=== PATIENT | male | born 1950 | race Caucasian/White ===

== ENCOUNTER 2019-05-07 19:27 | Inpatient (IN) ==
[2019-05-07] MEDS ORDERED: SODIUM CHLORIDE 0.9% 1000ML 1,000 ML IV SCH (20:00)
--- NOTE | 2019-05-07 20:11 | XRay Report ---
XR chest 1V portable HISTORY: weakness COMPARISON: Chest 04/19/2019. FINDINGS: Old, healed right-sided rib fractures. No new focal lung consolidations to suggest pneumoni a. No evidence for pulmonary edema. No pleural effusions. No pneumothorax. The heart is normal in siz e. IMPRESSION: No significant change compared to the prior study. No acute process. Electronically signed by: Sami Jon M.D. 05/07/2019 8:09 PM
[2019-05-07 20:21] LABS: Basophils # (auto) 0.02 K/uL (0-0.2); Basophils % (auto) 0.2 %; Eosinophils # (auto) 0.09 K/uL (0-0.5); Eosinophils % (auto) 1.1 %; Hematocrit (blood only) 42.4 % (42-52); Hemoglobin 14.6 g/dL (14.0-18.0); Immature Granulocytes # (auto) 0.04 K/uL (0.00-0.02); Immature Granulocytes % (auto) 0.5 %; Lymphocytes # (auto) 1.78 K/uL (1.2-3.4); Lymphocytes % (auto) 21.2 %; Mean Corpuscular Hemoglobin 31.9 pg (25-34); Mean Corpuscular Hgb Conc 34.4 g/dL (32-36); Mean Corpuscular Volume 92.6 fL (80-100); Mean Platelet Volume 10.7 fL (7.4-10.4); Monocytes # (auto) 0.53 K/uL (0.11-0.59); Monocytes % (auto) 6.3 %; Neutrophils # (auto) 5.92 K/uL (1.4-6.5); Neutrophils % (auto) 70.7 %; Platelet Count 232 K/uL (130-400); RDW Coefficient of Variation 13.1 % (11.5-14.5); RDW Standard Deviation 44.5 fL (36.4-46.3); Red Blood Count 4.58 M/uL (4.7-6.1); White Blood Count 8.38 K/uL (4.8-10.8)
[2019-05-07 20:28] LABS: Appearance Urine Clear (Clear); Bilirubin Urine Negative (Negative); Blood Urine Negative (Negative); Color Urine Yellow; Glucose Urine UA 3+ (Negative); Ketones Urine Negative (Negative); Leukocyte Esterase Urine Negative (Negative); Nitrite Urine Negative (Negative); Protein Urine Negative (Negative); Specific Gravity Urine 1.032 (1.000-1.030); Urobilinogen Urine Negative (Negative)
--- NOTE | 2019-05-07 20:36 | CT Scan Report ---
HEAD CT NONCONTRAST CT DOSE: 691.05 mGy.cm HISTORY: gait abnormality TECHNIQUE: Multiaxial CT images of the head were performed without the use of intravenous contrast. A utomated exposure control was utilized for this study. A dose lowering technique was utilized adheri ng to the principles of ALARA. Comparison: None. Findings: The paranasal sinuses and mastoid air cells are clear. The calvarium and skull base are int act. There is no mass, hematoma, midline shift, acute infarct. Mild ventriculomegaly involving the la teral and third ventricles. This is out of proportion to the sulcal atrophy. This is similar to the p rior study. Impression: Mild ventriculomegaly involving the lateral and third ventricles. This is out of proportion to the queen lcal atrophy. This is similar to the prior study. This is nonspecific but could be seen in the settin g of normal pressure hydrocephalus. Neurology consultation recommended. Electronically signed by: Sami Jon M.D. 05/07/2019 8:33 PM
[2019-05-07] MEDS ORDERED: NovoLIN-R INSULIN PER UNIT CHARGE SC STA (20:43)
[2019-05-07 20:44] LABS: Albumin Level 3.6 gm/dl (3.4-5.0); BUN Creatinine Ratio 16.7 (10-20); Bilirubin,Total 0.4 mg/dl (0.2-1); Calcium 9.1 mg/dl (8.5-10.1); Est GFR (African American) 54.7; Est GFR (Non-African American) 47.2; Potassium 4.3 mmol/L (3.5-5.1); Total Protein 7.2 gm/dl (6.4-8.2)
[2019-05-07 21:21] LABS: Beta-Hydroxybutyrate 1.47 mg/dl (0.2-2.81)
[2019-05-07 22:23] LABS: Globulin 3.6 gm/dl (2.5-4.0)
[2019-05-08] MEDS ORDERED: ACETAMINOPHEN 325 MG TAB PO PRN (00:35)
[2019-05-08] MEDS ORDERED: ONDANSETRON INJ 2 MG/ML 2 ML VIAL IV PRN (00:35)
[2019-05-08] MEDS ORDERED: POLYETHYLENE (MIRALAX) 17 GM PACK PO PRN (00:35)
[2019-05-08] MEDS ORDERED: GLUCOSE 40% GEL 15 GM TUBE PO PRN (00:45)
[2019-05-08] MEDS ORDERED: CARBOHYDRATES FOR HYPOGLYCEMIA PO PRN (00:45)
[2019-05-08] MEDS ORDERED: DEXTROSE 50% 50 ML SYRINGE IV PRN (00:45)
[2019-05-08] MEDS ORDERED: GLUCAGON FOR INJ 1 MG VIAL IM PRN (00:45)
[2019-05-08] MEDS ORDERED: GLUCOSE 10 TABS/TUBE PO PRN (00:45)
--- NOTE | 2019-05-08 00:45 | Emergency Department Note ---
Entered by Denice Garcia acting as a scribe for Shelby Calderon MD History of Present Illness General Chief complaint: Fall Stated complaint: FALL, DIZZINESS, HYPERGLYCEMIA Source: patient Limitations: no limitations History of Present Illness Onset (ago): minute(s) (APPLIER) Location: head Pain Consistency: + other (episode) Quality: + other (fall) Associated symptoms: + weakness The patient is a 68 year old male who presents to the Emergency Room with complaints of an episode of a fall that occurred APPLIER. He states that he was walking, he felt dizzy and weak, and then he lowered himself to the floor. The patient complains of feeling tired and weak for the past month. His , at bedside, states that he "legs haven't been working right and causing him to shuffle" for the past 6 months. He complains of a dry mouth. The patient denies hitting his head during the fall. The patient's , at bedside, states that his blood sugar was in the 300s today. The patient notes that he has a history of diabetes, stating that he is prescribed pills for his diabetes. Home Medications Home Medications Medication Instructions Recorded Confirmed Type allopurinol 100 mg PO QAM 04/19/19 05/07/19 History atorvastatin 40 mg PO QAM 04/19/19 05/07/19 History bupropion HCl 200 mg PO BID 04/19/19 05/08/19 History citalopram 20 mg PO QAM 04/19/19 05/07/19 History dextroamphetamine-amphetamine 20 mg PO BID 04/19/19 05/07/19 History lisinopril-hydrochlorothiazide 1 tab PO QAM 04/19/19 05/07/19 History sildenafil 100 mg PO DIRECTED 04/19/19 05/07/19 History solifenacin [Vesicare] 10 mg PO QAM 04/19/19 05/07/19 History aspirin [Aspirin Low Dose] 81 mg PO DAILY 05/07/19 05/07/19 History metformin 500 mg PO BID 05/07/19 05/07/19 History acetaminophen [Mapap 650 mg PO Q4H PRN 5 Days #20 tab 05/10/19 Rx (acetaminophen)] insulin glargine [Lantus Solostar 35 units SC .qhs 5 Days #3 ml 05/10/19 Rx U-100 Insulin] polyethylene glycol 3350 [Miralax] 17 g PO DAILY PRN 5 Days #10 ea 05/10/19 Rx sennosides-docusate sodium 1 tab PO QAM 5 Days #5 tab 05/10/19 Rx [Senokot-S] Allergies Allergy/AdvReac Type Severity Reaction Status Date / Time No Known Allergies Allergy Verified 05/07/19 21:35 Past Med/Surg History Medical History Diet-controlled diabetes mellitus No known health problems Family History Other No pertinent family history Social History Preferred Language: Turkmen Communication Ability: Effective Reconstructive Surgeon Required: No Beliefs That Will Affect Care: None Current Living Situation: Spouse Feels Safe at Home: Yes Smoking Status: Never smoker Hx Alcohol Use: Yes Hx Substance Use: No Review of Systems See HPI for pertinent positives & negatives. and A total of 10 systems reviewed and were otherwise negative Physical Exam Vital Signs Vital Signs - 24 hr 05/07/19 19:47 05/07/19 19:58 05/07/19 20:16 Temperature 36.5 C Temperature Source Oral Pulse Rate - Lying 78 Pulse Rate - Sitting 80 Pulse Rate - Standing 84 Pulse Rate 81 Pulse Rate [Bilateral Apical] 78 Respiratory Rate 20 18 Respiratory Effort / Characteristics Non-Labored Respiratory Depth Normal Blood Pressure - Lying 140/66 Blood Pressure - Sitting 152/71 H Blood Pressure- Standing 152/78 H Blood Pressure 128/65 Blood Pressure [Right Arm] 140/66 Blood Pressure Mean 86 Blood Pressure Mean [Right Arm] 90 Pulse Oximetry 94 94 92 Oxygen Delivery Method Room Air Room Air Room Air Sepsis Recent Fever Within 48 Hours No Sepsis Action Taken by Nursing No Action Required 05/07/19 20:27 05/07/19 21:20 05/07/19 22:32 Temperature Temperature Source Pulse Rate - Lying Pulse Rate - Sitting Pulse Rate - Standing Pulse Rate Pulse Rate [Bilateral Apical] 76 88 71 Respiratory Rate 18 20 18 Respiratory Effort / Characteristics Respiratory Depth Blood Pressure - Lying Blood Pressure - Sitting Blood Pressure- Standing Blood Pressure Blood Pressure [Right Arm] 125/71 143/73 H 141/64 H Blood Pressure Mean Blood Pressure Mean [Right Arm] 89 96 89 Pulse Oximetry 93 94 94 Oxygen Delivery Method Room Air Room Air Sepsis Recent Fever Within 48 Hours Sepsis Action Taken by Nursing Vital signs reviewed. General: Elderly, chronically ill-appearing male, in no significant distress. HEENT: No scleral icterus, PERRLA, neck supple. Atraumatic. Cardiovascular: Regular rate and rhythm, no extra sounds. Pulmonary: Clear to auscultation bilaterally, normal work of breathing. Abdomen: Soft, nontender, nondistended, positive bowel sounds. Musculoskeletal: Atraumatic, no peripheral edema. Neurologic: Patient awake alert and oriented x 3, full strength in all 4 extremities. Cranial nerves 2 through 12 grossly intact. Speech is slow, but he is articulating. Follows commands. Negative pronator drift and intact finger to nose. Skin: Warm, dry, no rash Course Course 1943: The patient was evaluated in room C11B. A complete history and physical exam was performed. 2042: The nursing staff updated me that the patients blood glucose was 418. 2119: I spoke with Dr. Dominguez, [facility] hospitalist, about the patient's case. He will further evaluate the patient. Administered Medications Allopurinol (Zyloprim) 100 mg PO QAM ON LICENSE OF [facility] Stop: 06/07/19 08:59 Last Admin: 05/09/19 08:08 Dose: 100 mg Documented by: [id number] Admin: 05/08/19 08:03 Dose: 100 mg Documented by: [id number] Amphetamine/Dextroamphetamine (Adderall) 20 mg PO BID@0700,1400 ON LICENSE OF [facility] Stop: 05/22/19 06:59 Last Admin: 05/09/19 14:06 Dose: 20 mg Documented by: [id number] Admin: 05/09/19 08:07 Dose: 20 mg Documented by: [id number] Admin: 05/08/19 14:22 Dose: 20 mg Documented by: [id number] Admin: 05/08/19 08:02 Dose: 20 mg Documented by: [id number] Aspirin (Ecotrin Ectab) 81 mg PO DAILY ON LICENSE OF [facility] Stop: 06/07/19 08:59 Last Admin: 05/09/19 08:07 Dose: 81 mg Documented by: [id number] Admin: 05/08/19 08:02 Dose: 81 mg Documented by: [id number] Atorvastatin Calcium (Lipitor) 40 mg PO QAM ON LICENSE OF [facility] Stop: 06/07/19 08:59 Last Admin: 05/09/19 08:08 Dose: 40 mg Documented by: [id number] Admin: 05/08/19 08:03 Dose: 40 mg Documented by: [id number] Bupropion HCl (Wellbutrin-Sr) 200 mg PO BID ON LICENSE OF [facility] Stop: 06/07/19 08:59 Last Admin: 05/09/19 20:29 Dose: 200 mg Documented by: [id number] Admin: 05/09/19 08:08 Dose: 200 mg Documented by: [id number] Admin: 05/08/19 20:40 Dose: 200 mg Documented by: [id number] Admin: 05/08/19 08:03 Dose: 200 mg Documented by: [id number] Citalopram Hydrobromide (Celexa) 20 mg PO QAM ON LICENSE OF [facility] Stop: 06/07/19 08:59 Last Admin: 05/09/19 08:08 Dose: 20 mg Documented by: [id number] Admin: 05/08/19 08:04 Dose: 20 mg Documented by: [id number] Gadobutrol (Gadavist 65ml) 11.2 ml IV ONCE PRN PRN Reason: Interaction Checking Stop: 05/12/19 23:05 Last Admin: 05/08/19 23:06 Dose: 11.2 ml Documented by: [id number] Lisinopril/HCTZ (Prinzide 20/25mg) 1 tab PO QAM ON LICENSE OF [facility] Stop: 06/07/19 08:59 Last Admin: 05/09/19 08:07 Dose: 1 tab Documented by: [id number] Admin: 05/08/19 08:03 Dose: 1 tab Documented by: [id number] Insulin Aspart (Novolog Flexpen) 0 units SC ACHS ON LICENSE OF [facility] Stop: 06/07/19 00:59 Last Admin: 05/09/19 20:30 Dose: 20 units Documented by: [id number] Cosigned by: [id number] Admin: 05/09/19 17:25 Dose: 17 units Documented by: [id number] Cosigned by: [id number] Admin: 05/09/19 12:02 Dose: 17 units Documented by: [id number] Cosigned by: [id number] Admin: 05/09/19 08:12 Dose: 12 units Documented by: [id number] Cosigned by: [id number] Admin: 05/08/19 20:41 Dose: 8 units Documented by: [id number] Cosigned by: [id number] Admin: 05/08/19 17:21 Dose: 16 units Documented by: [id number] Cosigned by: [id number] Admin: 05/08/19 12:08 Dose: 13 units Documented by: [id number] Cosigned by: [id number] Admin: 05/08/19 08:06 Dose: 13 units Documented by: [id number] Cosigned by: [id number] Admin: 05/08/19 02:01 Dose: 7 units Documented by: [id number] Cosigned by: [id number] Insulin Glargine (Lantus Solostar Pen) 0 units SC BID JACQUIE; Protocol Stop: 06/08/19 08:59 Last Admin: 05/09/19 20:30 Dose: 30 units Documented by: [id number] Cosigned by: [id number] Admin: 05/09/19 08:09 Dose: 20 units Documented by: [id number] Cosigned by: [id number] Senna/Docusate Sodium (Senokot S) 1 tab PO QAM ON LICENSE OF [facility] Stop: 06/08/19 18:14 Last Admin: 05/09/19 20:29 Dose: 1 tab Documented by: [id number] Tolterodine Tartrate (Detrol) 1 mg PO BID ON LICENSE OF [facility] Stop: 06/07/19 20:59 Last Admin: 05/09/19 20:30 Dose: 1 mg Documented by: [id number] Admin: 05/09/19 08:07 Dose: 1 mg Documented by: [id number] Admin: 05/08/19 20:46 Dose: 1 mg Documented by: [id number] Discontinued Medications Sodium Chloride (Nss 1000ml) 1,000 mls @ 125 mls/hr IV .Q8H ON LICENSE OF [facility] Stop: 06/06/19 19:59 Last Infusion: 05/08/19 00:08 Dose: 0 mls/hr Documented by: [id number] Admin: 05/07/19 20:20 Dose: 125 mls/hr Documented by: [id number] Lorazepam (Ativan) 0.5 mg in 1 mls @ 1 mls/min IV ONE ONE Stop: 05/08/19 02:16 Last Admin: 05/08/19 03:38 Dose: 1 mls/min Documented by: [id number] Insulin Aspart (Novolog Flexpen) 0 units SC 0000,0400 ON LICENSE OF [facility] Stop: 05/09/19 04:01 Last Admin: 05/09/19 04:32 Dose: 4 units Documented by: [id number] Cosigned by: [id number] Admin: 05/09/19 00:01 Dose: 2 units Documented by: [id number] Cosigned by: [id number] Insulin Aspart (Novolog Flexpen) 0 units SC 0000 ON LICENSE OF [facility] Stop: 05/10/19 00:01 Last Admin: 05/10/19 00:24 Dose: 1 units Documented by: [id number] Cosigned by: [id number] Insulin Glargine (Lantus Solostar Pen) 5 units SC BID ON LICENSE OF [facility] Stop: 06/07/19 00:59 Last Admin: 05/08/19 02:00 Dose: 5 units Documented by: [id number] Cosigned by: [id number] Insulin Glargine (Lantus Solostar Pen) 20 units SC NOW ONE Stop: 05/08/19 08:01 Last Admin: 05/08/19 08:05 Dose: 20 units Documented by: [id number] Cosigned by: [id number] Insulin Glargine (Lantus Solostar Pen) 0 units SC HS ON LICENSE OF [facility]; Protocol Stop: 05/08/19 21:01 Last Admin: 05/08/19 20:40 Dose: 15 units Documented by: [id number] Cosigned by: [id number] Insulin Human Regular (Novolin R U-100 Per Unit) 10 units SC NOW STA Stop: 05/07/19 20:44 Last Admin: 05/07/19 21:16 Dose: 10 units Documented by: [id number] Cosigned by: [id number] Lorazepam (Ativan) 0.5 mg PO TODAY@1630 ON LICENSE OF [facility] Stop: 05/08/19 23:59 Last Admin: 05/08/19 21:34 Dose: 0.5 mg Documented by: [id number] Miscellaneous (Order Awaiting Action) 1 ea N/A QS ON LICENSE OF [facility] Stop: 06/07/19 00:59 Last Admin: 05/08/19 07:36 Dose: Not Given Documented by: [id number] Admin: 05/08/19 02:04 Dose: Not Given Documented by: [id number] Potassium Chloride (Klor-Con M20) 20 meq PO NOW ONE Stop: 05/08/19 14:16 Last Admin: 05/08/19 16:29 Dose: 20 meq Documented by: [id number] Medical Decision Making Differential Diagnosis Differential includes acute coronary syndrome, myocardial infarction, CVA, TIA, anemia, infection, pneumonia, UTI, pyelonephritis, poor nutrition, dehydration, electrolyte disturbance,hypoglycemia. Medical Records Attestation: I reviewed the patient's medical records. Home Medications Current Medication List: was personally reviewed by me Laboratory Data Attestation: I reviewed the patient's lab results. Result diagrams: 05/09/19 06:13 05/09/19 06:13 Lab Results 05/07/19 05/07/19 05/07/19 Range/Units 19:59 19:59 19:59 WBC 8.38 (4.8-10.8) K/uL RBC 4.58 L (4.7-6.1) M/uL Hgb 14.6 (14.0-18.0) g/dL Hct 42.4 (42-52) % MCV 92.6 (80-100) fL MCH 31.9 (25-34) pg MCHC 34.4 (32-36) g/dL RDW Std Deviation 44.5 (36.4-46.3) fL RDW Coeff of Krysta 13.1 (11.5-14.5) % Plt Count 232 (130-400) K/uL MPV 10.7 H (7.4-10.4) fL Immature Gran % (Auto) 0.5 % Neut % (Auto) 70.7 % Lymph % (Auto) 21.2 % [place] % (Auto) 6.3 % Eos % (Auto) 1.1 % Baso % (Auto) 0.2 % Immature Gran # (Auto) 0.04 H (0.00-0.02) K/uL Neut # (Auto) 5.92 (1.4-6.5) K/uL Lymph # (Auto) 1.78 (1.2-3.4) K/uL [place] # (Auto) 0.53 (0.11-0.59) K/uL Eos # (Auto) 0.09 (0-0.5) K/uL Baso # (Auto) 0.02 (0-0.2) K/uL Sodium 134 L (136-145) mmol/L Potassium 4.3 (3.5-5.1) mmol/L Chloride 101 (98-107) mmol/L Carbon Dioxide 27 (21-32) mmol/L Anion Gap 6.0 (3-11) BUN 25 H (7-18) mg/dl Creatinine 1.49 H (0.6-1.4) mg/dl Est Cr Clr Drug Dosing 59.0 ml/min Est GFR ( Amer) 54.7 Est GFR (Non-Af Amer) 47.2 BUN/Creatinine Ratio 16.7 (10-20) Glucose 412 H* (70-99) mg/dl POC Glucose (70-99) Calcium 9.1 (8.5-10.1) mg/dl Total Bilirubin 0.4 (0.2-1) mg/dl AST 8 L (15-37) U/L ALT 28 (12-78) U/L Alkaline Phosphatase 106 (45-117) U/L Troponin I < 0.015 (0-0.045) ng/ml Total Protein 7.2 (6.4-8.2) gm/dl Albumin 3.6 (3.4-5.0) gm/dl Globulin 3.6 (2.5-4.0) gm/dl Albumin/Globulin Ratio 1.0 (0.9-2) Beta-Hydroxybutyric Acd 1.47 (0.2-2.81) mg/dl Urine Color Urine Appearance (Clear) Urine pH (4.5-7.5) Ur Specific Page (1.000-1.030) Urine Protein (Negative) Urine Glucose (UA) (Negative) Urine Ketones (Negative) Urine Blood (Negative) Urine Nitrite (Negative) Urine Bilirubin (Negative) Urine Urobilinogen (Negative) Ur Leukocyte Esterase (Negative) 05/07/19 05/07/19 Range/Units 19:59 21:55 WBC (4.8-10.8) K/uL RBC (4.7-6.1) M/uL Hgb (14.0-18.0) g/dL Hct (42-52) % MCV (80-100) fL MCH (25-34) pg MCHC (32-36) g/dL RDW Std Deviation (36.4-46.3) fL RDW Coeff of Krysta (11.5-14.5) % Plt Count (130-400) K/uL MPV (7.4-10.4) fL Immature Gran % (Auto) % Neut % (Auto) % Lymph % (Auto) % [place] % (Auto) % Eos % (Auto) % Baso % (Auto) % Immature Gran # (Auto) (0.00-0.02) K/uL Neut # (Auto) (1.4-6.5) K/uL Lymph # (Auto) (1.2-3.4) K/uL [place] # (Auto) (0.11-0.59) K/uL Eos # (Auto) (0-0.5) K/uL Baso # (Auto) (0-0.2) K/uL Sodium (136-145) mmol/L Potassium (3.5-5.1) mmol/L Chloride (98-107) mmol/L Carbon Dioxide (21-32) mmol/L Anion Gap (3-11) BUN (7-18) mg/dl Creatinine (0.6-1.4) mg/dl Est Cr Clr Drug Dosing ml/min Est GFR ( Amer) Est GFR (Non-Af Amer) BUN/Creatinine Ratio (10-20) Glucose (70-99) mg/dl POC Glucose 349 H* (70-99) Calcium (8.5-10.1) mg/dl Total Bilirubin (0.2-1) mg/dl AST (15-37) U/L ALT (12-78) U/L Alkaline Phosphatase (45-117) U/L Troponin I (0-0.045) ng/ml Total Protein (6.4-8.2) gm/dl Albumin (3.4-5.0) gm/dl Globulin (2.5-4.0) gm/dl Albumin/Globulin Ratio (0.9-2) Beta-Hydroxybutyric Acd (0.2-2.81) mg/dl Urine Color Yellow Urine Appearance Clear (Clear) Urine pH 5.0 (4.5-7.5) Ur Specific Page 1.032 H (1.000-1.030) Urine Protein Negative (Negative) Urine Glucose (UA) 3+ H (Negative) Urine Ketones Negative (Negative) Urine Blood Negative (Negative) Urine Nitrite Negative (Negative) Urine Bilirubin Negative (Negative) Urine Urobilinogen Negative (Negative) Ur Leukocyte Esterase Negative (Negative) Imaging Data Radiologist's Impression: Radiology results as stated below per my review and the radiologist's interpretation: HEAD CT NONCONTRAST CT DOSE: 691.05 mGy.cm HISTORY: gait abnormality TECHNIQUE: Multiaxial CT images of the head were performed without the use of intravenous contrast. Automated exposure control was utilized for this study. A dose lowering technique was utilized adhering to the principles of ALARA. Comparison: None. Findings: The paranasal sinuses and mastoid air cells are clear. The calvarium and skull base are intact. There is no mass, hematoma, midline shift, acute infarct. Mild ventriculomegaly involving the lateral and third ventricles. This is out of proportion to the sulcal atrophy. This is similar to the prior study. Impression: Mild ventriculomegaly involving the lateral and third ventricles. This is out of proportion to the sulcal atrophy. This is similar to the prior study. This is nonspecific but could be seen in the setting of normal pressure hydrocephalus. Neurology consultation recommended. Electronically signed by: Sami Jon M.D. 05/07/2019 8:33 PM XR chest 1V portable HISTORY: weakness COMPARISON: Chest 04/19/2019. FINDINGS: Old, healed right-sided rib fractures. No new focal lung consolidations to suggest pneumonia. No evidence for pulmonary edema. No pleural effusions. No pneumothorax. The heart is normal in size. IMPRESSION: No significant change compared to the prior study. No acute process. Electronically signed by: Sami Jon M.D. 05/07/2019 8:09 PM ECG Data Attestation: I personally reviewed and interpreted this ECG as follows: Indication: + other (fall) Rate (beats per minute): 85 Rhythm: + normal sinus ECG Intervals/blocks: + Right Bundle branch block ECG Findings: + Other (prolonged QTC of 473); no PACs and no PVCs Blood Pressure Blood Pressure Findings: Elevated blood pressure Blood Pressure Disposition: further management by hospitalist MDM Narrative This pt was evaluated and appeared to be in no distress. IV access was obtained and lab work was drawn. Pt was placed on the youth nutritional monitor. IVF were initiated. Lab work reveals a glucose of 412. Pt was given 10 units of SQ regular insulin. Head CT reveals no acute abnl, however there are findings suggestive of NPH. Pt and were advised of the findings and will be nel luated by the hospitalist service for further management. Impression & Plan Falls, Weakness, Ambulatory dysfunction, Hyperglycemia Discharge Plan Visit Data *Final* Discharge Date/Time: 05/08/19 00:09 Chief Complaint: Fall Stated Complaint: FALL, DIZZINESS, HYPERGLYCEMIA ED Provider: Shelby Calderon Discharge Problem: Falls, Weakness, Ambulatory dysfunction, Hyperglycemia Patient Disposition: Admitted As Inpatient Discharge Instructions Interventions: ED Discharge Assessment Last Done: 05/08/19 00:09 Discharge Problem: Falls Qualifiers: Encounter type: initial encounter Qualified Code(s): W19.XXXA - Unspecified fall, initial encounter The scribe's documentation has been prepared under my direction and personally reviewed by me in its entirety. I confirm that the note above accurately reflects all work, treatment, procedures, and medical decision making performed by me.
[2019-05-08] MEDS ORDERED: INSULIN GLARGINE SOLOSTAR 100 UNITS/ML 3 ML PEN SC SCH ×3 (01:00→21:00)
--- NOTE | 2019-05-08 01:58 | History and Physical Report ---
DATE OF ADMISSION: 05/07/2019 CHIEF COMPLAINT: Fall and ambulatory dysfunction. HISTORY OF PRESENT ILLNESS: This is a 68-year-old male with past medical history significant for diabetes, hypertension, chronic kidney disease stage III, overactive bladder, prostate cancer, gout, chronic depression, who presents with ambulatory dysfunction. The patient states he was at a meeting and he was walking with difficulty balancing himself. He held on to stuff to balance himself and then slowly went down to the ground. He did not hit anything. It has happened before too. On and off it is happening since last 2-3 months, this is why he came to the ER. He is also having urinary incontinence for the last few months and he attributes it to his prostate cancer. He is supposed to get surgery on 05/20/2019 at [facility] for his prostate cancer. Lately, he is also having some mild memory issues. He denies any headache. He gets dizzy sometimes. Denies any blurred visions. No earache, no runny nose, no sore throat, no cough. Sometimes he gets difficulty swallowing because of dry mouth, mostly for solids. Appetite is okay. No recent weight gain or weight loss. Sleeps okay with CPAP. No sweating. No recent weight gain or weight loss. No chest pain. Gets some shortness of breath when he exerts himself. No nausea, no vomiting, no abdominal pain, no diarrhea or constipation, no melena or hematochezia. No burning micturition, no hematuria. No swelling in the legs. He is currently resting comfortably and hemodynamically stable. ALLERGIES: No known drug allergies. PAST MEDICAL HISTORY: As mentioned above. PAST SURGICAL HISTORY: No past surgical history on file. MEDICATIONS AT HOME: The patient is on aspirin 81 mg p.o. daily, VESIcare 10 mg p.o. daily, metformin 500 mg p.o. b.i.d., allopurinol 100 mg p.o. daily, Adderall XR 20 mg p.o. b.i.d., Lipitor 40 mg p.o. at bedtime, bupropion ER 400 mg p.o. daily, Celexa 20 mg p.o. daily, lisinopril and hydrochlorothiazide 20/25 mg p.o. daily. FAMILY HISTORY: No family history on file. SOCIAL HISTORY: and lives with his . No smoking. Alcohol occasional. No drug use. REVIEW OF SYSTEMS: As per HPI. Rest of the review of systems negative. PHYSICAL EXAMINATION: GENERAL: The patient is obese, not in acute distress. VITAL SIGNS: Temperature 36.5, pulse 71, respiratory rate 18, blood pressure 141/64, oxygen 94% on room air. HEENT: No pallor, no icterus. Pupils equal, round, reactive to light. NECK: No JVD, no neck masses. CARDIOVASCULAR: S1, S2 heard, regular rate and rhythm, no murmur, no gallop. RESPIRATORY SYSTEM: Normal AP diameter. No accessory muscle use. No wheezing, no crackles. ABDOMEN: Soft, bowel sounds present, nontender. No distention. CENTRAL NERVOUS SYSTEM: Cranial nerves II-XII grossly intact. Power 5/5 in all extremities. Coordination of movements normal. [id number] test normal. No pronator drift. Sensation is intact. EXTREMITIES: No edema, no erythema. LABORATORY DATA: WBC 8.3, hemoglobin 14.6, hematocrit 42.4, platelets 232. Sodium 134, potassium 4.3, chloride 101, bicarbonate 27, BUN 25, creatinine 1.4, serum glucose 412, calcium 9.1, total bilirubin 0.4, AST 48, ALT 28, alkaline phosphatase 106. Troponin I less than 0.015. Urinalysis positive for +3 glucose. IMAGING DATA: CT of the head, mild ventriculomegaly involving the lateral third ventricles. These are out of proportion to the sulcal atrophy. This is similar to prior study. This is nonspecific, but could be seen in the setting of normal pressure hydrocephalus. Neurology consultation is recommended. Chest x-ray, no acute process seen. EKG: Normal sinus rhythm with rate of 85, right bundle branch block, no significant change from previous EKG. ASSESSMENT AND PLAN: This is a 68-year-old male who presents with fall and ambulatory dysfunction. 1. Fall and ambulatory dysfunction. CAT scan is showing possible normal pressure hydrocephalus, it was there in the previous on CAT scan too. The patient is also having urinary incontinence for few months. He attributes it to his prostate cancer and he also has some memory issues and he is having ambulatory dysfunction for the last 2-3 months. All these symptoms could be from normal pressure hydrocephalus. We will get MRI scan to get a better picture. We will admit to medical floor and consult neurology in the a.m. for further recommendation, further test, and confirmation. PT and OT when stable. 2. Diabetes, seems to be uncontrolled. Blood sugars have been high in the ER at 412. Received 1 dose of IV insulin. At home on metformin, which we will hold. We will place him on Lantus 5 units b.i.d., insulin sliding scale. Will follow hemoglobin A1c levels, follow his blood sugars and adjust meds while he is in the hospital. May need diabetic education and counseling. 3. Chronic kidney disease stage III. Seems to have baseline creatinines between 1.1-1.4, presently creatinine of 1.4. We will follow the labs in the a.m. 4. History of prostate cancer, supposed to get surgery in [place] on 05/20/2019. Continue his VESIcare for urinary incontinence. 5. Depression. Continue his bupropion, citalopram. Follows with psychiatry. 6. Hyperlipidemia. Continue statin. 7. Gout, continue allopurinol. 8. Obstructive sleep apnea, on CPAP at bedtime. 9. Deep venous thrombosis prophylaxis, sequential compression devices for now. 10. Disposition: Admit to medical floor. Expect to discharge home and follow with family doctor. Level 1 full code as per my discussion with the patient. LESLYE
[2019-05-08] MEDS: INSULIN ASPART 100 UNITS/ML 3 ML PEN SC SCH ×5 (02:01→20:41)
[2019-05-08] MEDS: VESICARE~ORDER AWAITING ACTION SCH ×2 (02:04→07:36)
[2019-05-08] MEDS ORDERED: LORazepam 0.5 MG/1 ML VIAL IV ONE (02:15)
[2019-05-08] MEDS ORDERED: PHARMACY GLYCEMIC MGMT CONSULT PRN (05:17)
[2019-05-08 05:47] LABS: Basophils # (auto) 0.01 K/uL (0-0.2); Basophils % (auto) 0.1 %; Eosinophils # (auto) 0.15 K/uL (0-0.5); Eosinophils % (auto) 1.4 %; Hematocrit (blood only) 42.5 % (42-52); Hemoglobin 14.3 g/dL (14.0-18.0); Immature Granulocytes # (auto) 0.06 K/uL (0.00-0.02); Immature Granulocytes % (auto) 0.6 %; Lymphocytes # (auto) 2.33 K/uL (1.2-3.4); Mean Corpuscular Hemoglobin 31.4 pg (25-34); Mean Corpuscular Hgb Conc 33.6 g/dL (32-36); Mean Corpuscular Volume 93.2 fL (80-100); Mean Platelet Volume 10.8 fL (7.4-10.4); Monocytes # (auto) 1.09 K/uL (0.11-0.59); Monocytes % (auto) 10.3 %; Neutrophils # (auto) 6.95 K/uL (1.4-6.5); Neutrophils % (auto) 65.6 %; Platelet Count 219 K/uL (130-400); RDW Coefficient of Variation 13.4 % (11.5-14.5); RDW Standard Deviation 45.4 fL (36.4-46.3); Red Blood Count 4.56 M/uL (4.7-6.1); White Blood Count 10.59 K/uL (4.8-10.8)
[2019-05-08 06:19] LABS: BUN Creatinine Ratio 17.6 (10-20); Calcium 8.9 mg/dl (8.5-10.1); Creatinine Clr Calc Pharmacy 73.1 ml/min; Est GFR (African American) 71.1; Est GFR (Non-African American) 61.3; Potassium 3.5 mmol/L (3.5-5.1)
[2019-05-08 06:31] LABS: Estimated Average Glucose 283 mg/dl; Hemoglobin A1C 11.5 % (4.5-5.6)
--- NOTE | 2019-05-08 07:47 | Magnetic Resonance Report ---
MRI OF THE BRAIN WITHOUT IV CONTRAST CLINICAL HISTORY: Normal pressure hydrocephalus. COMPARISON STUDY: CT of the brain dated 05/07/2019. TECHNIQUE: MRI of the brain was performed utilizing various T1 and T2-weighted sequences in the axial , sagittal, and coronal planes. IV contrast was not administered for this examination. The examinatio n is compromised by motion artifact. FINDINGS: Brain parenchyma: There is age-related involutional change noting mild subcortical and periventricula r microangiopathic disease. There is no hemorrhage or mass effect. There is no restricted diffusion t o suggest acute ischemia. Rinaldi-white matter differentiation is preserved. No extra-axial fluid collec tion is seen. The cerebellar tonsils are normal in configuration. Ventricles, sulci, and cisterns: Prominent secondary to involutional change. The ventricles are dilat ed to a greater extent than the cortical sulci. Pituitary and sella: Unremarkable. Intracranial vasculature: Normal flow voids are maintained at the skull base. Orbits: The bony orbits are grossly intact. Orbital contents are normal in appearance noting bilatera l ocular lens implants. Sinuses and mastoids: Clear. Calvarium: Unremarkable. Cervical cord: Partially visualized cervical spinal cord is normal in morphology and signal intensity . IMPRESSION: There is no hemorrhage, mass effect, or evidence of acute ischemia. Electronically signed by: Domingo Welch M.D. 05/08/2019 7:46 AM
[2019-05-08] MEDS ORDERED: INSULIN GLARGINE SOLOSTAR 100 UNITS/ML 3 ML PEN SC ONE (08:00)
[2019-05-08] MEDS: ASPIRIN 81 MG ECTAB PO SCH (08:02)
[2019-05-08] MEDS: AMPHETAMINE ASP/SULF/DEXTRAMPH 20 MG TAB PO SCH ×2 (08:02→14:22)
[2019-05-08] MEDS: ATORVASTATIN 40 MG TAB PO SCH (08:03)
[2019-05-08] MEDS: BuPROPion SR 100 MG TABCR PO SCH ×2 (08:03→20:40)
[2019-05-08] MEDS: LISINOPRIL/HCTZ 20/25MG 1 TAB PO SCH (08:03)
[2019-05-08] MEDS: ALLOPURINOL 100 MG TAB PO SCH (08:03)
[2019-05-08] MEDS: CITALOPRAM 20 MG TAB PO SCH (08:04)
--- NOTE | 2019-05-08 08:23 | Hospitalist Progress Note ---
Date of Service May 08, 2019 Assessment & Plan (1) Falls: Present on Admission?: Yes (2) Weakness: Present on Admission?: Yes (3) Ambulatory dysfunction: This is a 68-year-old male who presents with fall and ambulatory dysfunction. Fall and ambulatory dysfunction. CT head is showing possible normal pressure hydrocephalus, it was noted on the previous CAT scan too - patient is also having urinary incontinence for few months. He attributes it to his prostate cancer and he also has some memory issues and he is having ambulatory dysfunction for the last 2-3 months. All these symptoms could be from normal pressure hydrocephalus. - MRI obtained (see above) to get a better picture - neurology consulted for further recommendation, further test, and confirmation. - PT and OT when stable Present on Admission?: Yes (4) Diabetes mellitus type 2, uncontrolled: Hemoglobin A1c 11.5% On admission in the ER glucose level at 400s, received IV insulin At home takes metformin, will hold during hospitalization Pharm glycemic mngmt and diabetes education consulted Discussed with the patient and his on the phone, that he will likely need insulin when discharged, pt will need to learn how to use insulin, patient is agreeable Will continue to monitor blood glucose levels, and will adjust insulin as needed Present on Admission?: Yes (5) Hyperlipidemia: Continue home statin Present on Admission?: Yes (6) CKD stage 3 secondary to diabetes: Baseline creatinine 1.1-1.4, admission creatinine 1.49 -Now improved, back to baseline, creatinine 1.2 -We will continue to monitor renal function -We will try to avoid nephrotoxic agents, NSAIDs, contrast, etc. History of prostate cancer, supposed to get surgery in [place] on 05/20/2019. Continue his VESIcare for urinary incontinence. (7) Gout: Continue home allopurinol Present on Admission?: Yes (8) MCKENNA (obstructive sleep apnea): On CPAP at bedtime Present on Admission?: Yes (9) Depression: Continue home bupropion and citalopram -Follow-up with psychiatry Present on Admission?: Yes (10) DVT prophylaxis: SCDs for now (11) Discharge planning issues: Likely discharge back home after hospitalization Subjective No acute events overnight, patient says he is still" confused and he knows he is getting some test done". Patient is very pleasant, sitting in a chair. Denies any fevers, chills, chest pain, shortness of breath, vision pain, nausea or vomiting. He says his been having headache for past 2 to 3 days, which is dull and frontal/right-sided. Discussed with patient's on the phone, diabetes management, likely starting patient on insulin, and evaluation of possible normal pressure hydrocephalus. Patient's confirms that patient has been on metformin for some time, it first started in [place] where they lived before. She also says that lately he has been more confused, and wobbly/unsteady on his feet, she also mentions ur inary incontinence. Review of Systems Review of Systems: All systems reviewed & are unremarkable except as noted in HPI & below Constitutional: no fever and no chills Respiratory: no cough, no dyspnea and no pain on inspiration Cardiovascular: no chest pain, no palpitations and no edema Gastrointestinal: no abdominal pain, no nausea and no vomiting Genitourinary: + urinary incontinence Physical Exam Physical Exam: Elderly male sitting in a chair, in no acute distress, pleasant Constitutional: well developed and well nourished; no acute distress Eyes: PERRL, conjunctivae normal, anicteric sclerae EOM intact bilaterally ENMT: external ear and nose normal, oropharynx normal Neck: normal visual inspection Supple Respiratory: normal respiratory effort, lungs clear to auscultation Auscultation: no crackles, no rales, no rhonchi and no wheezes Cardiovascular: RRR, no murmur, no edema Heart Sounds: no gallop Chest (Breasts): Chest: normal inspection of chest Gastrointestinal (Abdomen): normal bowel sounds, soft, nontender, no hepatosplenomegaly Inspection/Auscultation: abdomen normal to inspection; abdomen not distended Percussion/Palpation: abdomen nontender and no guarding Obese Musculoskeletal: Head/Neck/Chest: normocephalic, head atraumatic and neck supple Extremities: extremities normal to inspection Moves all 4 extremities spontaneously, uses cane for ambulation Skin: no rashes, warm and dry Neurologic: PERRL, EOMI, accommodation nl, no face palsy, no dysarthria moves all extremities Speech fluent Psychiatric: A+Ox3, euthymic affect Speech: normal rate/rhythm/volume of speech Lymphatic: no lymphedema Results & Data Vital Signs (Past 12 Hours) Vital Signs Temp Pulse Resp BP Pulse Ox 05/08/19 07:35 37.4 C 84 18 131/70 92 05/08/19 00:25 36.7 C 76 18 158/70 H 93 05/08/19 00:03 73 18 135/72 94 05/07/19 22:32 71 18 141/64 H 94 05/07/19 21:20 88 20 143/73 H 94 05/07/19 20:27 76 18 125/71 93 Laboratory Results 05/08/19 05/08/19 05/08/19 Range/Units 07:42 07:41 05:22 WBC (4.8-10.8) K/uL RBC (4.7-6.1) M/uL Hgb (14.0-18.0) g/dL Hct (42-52) % MCV (80-100) fL MCH (25-34) pg MCHC (32-36) g/dL RDW Std Deviation (36.4-46.3) fL RDW Coeff of Krysta (11.5-14.5) % Plt Count (130-400) K/uL MPV (7.4-10.4) fL Immature Gran % (Auto) % Neut % (Auto) % Lymph % (Auto) % [place] % (Auto) % Eos % (Auto) % Baso % (Auto) % Immature Gran # (Auto) (0.00-0.02) K/uL Neut # (Auto) (1.4-6.5) K/uL Lymph # (Auto) (1.2-3.4) K/uL [place] # (Auto) (0.11-0.59) K/uL Eos # (Auto) (0-0.5) K/uL Baso # (Auto) (0-0.2) K/uL Sodium (136-145) mmol/L Potassium (3.5-5.1) mmol/L Chloride (98-107) mmol/L Carbon Dioxide (21-32) mmol/L Anion Gap (3-11) BUN (7-18) mg/dl Creatinine (0.6-1.4) mg/dl Est Cr Clr Drug Dosing ml/min Est GFR ( Amer) Est GFR (Non-Af Amer) BUN/Creatinine Ratio (10-20) Glucose (70-99) mg/dl POC Glucose 305 H* 314 H* (70-99) Estimat Average Glucose 283 mg/dl Hemoglobin A1c 11.5 H (4.5-5.6) % Calcium (8.5-10.1) mg/dl Magnesium (1.8-2.4) mg/dl Total Bilirubin (0.2-1) mg/dl AST (15-37) U/L ALT (12-78) U/L Alkaline Phosphatase (45-117) U/L Troponin I (0-0.045) ng/ml Total Protein (6.4-8.2) gm/dl Albumin (3.4-5.0) gm/dl Globulin (2.5-4.0) gm/dl Albumin/Globulin Ratio (0.9-2) Beta-Hydroxybutyric Acd (0.2-2.81) mg/dl Urine Color Urine Appearance (Clear) Urine pH (4.5-7.5) Ur Specific [place] (1.000-1.030) Urine Protein (Negative) Urine Glucose (UA) (Negative) Urine Ketones (Negative) Urine Blood (Negative) Urine Nitrite (Negative) Urine Bilirubin (Negative) Urine Urobilinogen (Negative) Ur Leukocyte Esterase (Negative) 05/08/19 05/08/19 05/08/19 Range/Units 05:22 05:22 05:07 WBC 10.59 (4.8-10.8) K/uL RBC 4.56 L (4.7-6.1) M/uL Hgb 14.3 (14.0-18.0) g/dL Hct 42.5 (42-52) % MCV 93.2 (80-100) fL MCH 31.4 (25-34) pg MCHC 33.6 (32-36) g/dL RDW Std Deviation 45.4 (36.4-46.3) fL RDW Coeff of Krysta 13.4 (11.5-14.5) % Plt Count 219 (130-400) K/uL MPV 10.8 H (7.4-10.4) fL Immature Gran % (Auto) 0.6 % Neut % (Auto) 65.6 % Lymph % (Auto) 22.0 % [place] % (Auto) 10.3 % Eos % (Auto) 1.4 % Baso % (Auto) 0.1 % Immature Gran # (Auto) 0.06 H (0.00-0.02) K/uL Neut # (Auto) 6.95 H (1.4-6.5) K/uL Lymph # (Auto) 2.33 (1.2-3.4) K/uL [place] # (Auto) 1.09 H (0.11-0.59) K/uL Eos # (Auto) 0.15 (0-0.5) K/uL Baso # (Auto) 0.01 (0-0.2) K/uL Sodium 137 (136-145) mmol/L Potassium 3.5 D (3.5-5.1) mmol/L Chloride 103 (98-107) mmol/L Carbon Dioxide 27 (21-32) mmol/L Anion Gap 7.0 (3-11) BUN 21 H (7-18) mg/dl Creatinine 1.20 (0.6-1.4) mg/dl Est Cr Clr Drug Dosing 73.1 ml/min Est GFR ( Amer) 71.1 Est GFR (Non-Af Amer) 61.3 BUN/Creatinine Ratio 17.6 (10-20) Glucose 279 H (70-99) mg/dl POC Glucose 282 H (70-99) Estimat Average Glucose mg/dl Hemoglobin A1c (4.5-5.6) % Calcium 8.9 (8.5-10.1) mg/dl Magnesium 2.0 (1.8-2.4) mg/dl Total Bilirubin (0.2-1) mg/dl AST (15-37) U/L ALT (12-78) U/L Alkaline Phosphatase (45-117) U/L Troponin I (0-0.045) ng/ml Total Protein (6.4-8.2) gm/dl Albumin (3.4-5.0) gm/dl Globulin (2.5-4.0) gm/dl Albumin/Globulin Ratio (0.9-2) Beta-Hydroxybutyric Acd (0.2-2.81) mg/dl Urine Color Urine Appearance (Clear) Urine pH (4.5-7.5) Ur Specific [place] (1.000-1.030) Urine Protein (Negative) Urine Glucose (UA) (Negative) Urine Ketones (Negative) Urine Blood (Negative) Urine Nitrite (Negative) Urine Bilirubin (Negative) Urine Urobilinogen (Negative) Ur Leukocyte Esterase (Negative) 05/08/19 05/08/19 05/08/19 Range/Units 00:27 00:26 00:24 WBC (4.8-10.8) K/uL RBC (4.7-6.1) M/uL Hgb (14.0-18.0) g/dL Hct (42-52) % MCV (80-100) fL MCH (25-34) pg MCHC (32-36) g/dL RDW Std Deviation (36.4-46.3) fL RDW Coeff of Krysta (11.5-14.5) % Plt Count (130-400) K/uL MPV (7.4-10.4) fL Immature Gran % (Auto) % Neut % (Auto) % Lymph % (Auto) % [place] % (Auto) % Eos % (Auto) % Baso % (Auto) % Immature Gran # (Auto) (0.00-0.02) K/uL Neut # (Auto) (1.4-6.5) K/uL Lymph # (Auto) (1.2-3.4) K/uL [place] # (Auto) (0.11-0.59) K/uL Eos # (Auto) (0-0.5) K/uL Baso # (Auto) (0-0.2) K/uL Sodium (136-145) mmol/L Potassium (3.5-5.1) mmol/L Chloride (98-107) mmol/L Carbon Dioxide (21-32) mmol/L Anion Gap (3-11) BUN (7-18) mg/dl Creatinine (0.6-1.4) mg/dl Est Cr Clr Drug Dosing ml/min Est GFR ( Amer) Est GFR (Non-Af Amer) BUN/Creatinine Ratio (10-20) Glucose (70-99) mg/dl POC Glucose 297 H 271 H 312 H* (70-99) Estimat Average Glucose mg/dl Hemoglobin A1c (4.5-5.6) % Calcium (8.5-10.1) mg/dl Magnesium (1.8-2.4) mg/dl Total Bilirubin (0.2-1) mg/dl AST (15-37) U/L ALT (12-78) U/L Alkaline Phosphatase (45-117) U/L Troponin I (0-0.045) ng/ml Total Protein (6.4-8.2) gm/dl Albumin (3.4-5.0) gm/dl Globulin (2.5-4.0) gm/dl Albumin/Globulin Ratio (0.9-2) Beta-Hydroxybutyric Acd (0.2-2.81) mg/dl Urine Color Urine Appearance (Clear) Urine pH (4.5-7.5) Ur Specific [place] (1.000-1.030) Urine Protein (Negative) Urine Glucose (UA) (Negative) Urine Ketones (Negative) Urine Blood (Negative) Urine Nitrite (Negative) Urine Bilirubin (Negative) Urine Urobilinogen (Negative) Ur Leukocyte Esterase (Negative) 05/07/19 05/07/19 05/07/19 Range/Units 23:52 21:55 19:59 WBC (4.8-10.8) K/uL RBC (4.7-6.1) M/uL Hgb (14.0-18.0) g/dL Hct (42-52) % MCV (80-100) fL MCH (25-34) pg MCHC (32-36) g/dL RDW Std Deviation (36.4-46.3) fL RDW Coeff of Krysta (11.5-14.5) % Plt Count (130-400) K/uL MPV (7.4-10.4) fL Immature Gran % (Auto) % Neut % (Auto) % Lymph % (Auto) % [place] % (Auto) % Eos % (Auto) % Baso % (Auto) % Immature Gran # (Auto) (0.00-0.02) K/uL Neut # (Auto) (1.4-6.5) K/uL Lymph # (Auto) (1.2-3.4) K/uL [place] # (Auto) (0.11-0.59) K/uL Eos # (Auto) (0-0.5) K/uL Baso # (Auto) (0-0.2) K/uL Sodium (136-145) mmol/L Potassium (3.5-5.1) mmol/L Chloride (98-107) mmol/L Carbon Dioxide (21-32) mmol/L Anion Gap (3-11) BUN (7-18) mg/dl Creatinine (0.6-1.4) mg/dl Est Cr Clr Drug Dosing ml/min Est GFR ( Amer) Est GFR (Non-Af Amer) BUN/Creatinine Ratio (10-20) Glucose (70-99) mg/dl POC Glucose 273 H 349 H* (70-99) Estimat Average Glucose mg/dl Hemoglobin A1c (4.5-5.6) % Calcium (8.5-10.1) mg/dl Magnesium (1.8-2.4) mg/dl Total Bilirubin (0.2-1) mg/dl AST (15-37) U/L ALT (12-78) U/L Alkaline Phosphatase (45-117) U/L Troponin I (0-0.045) ng/ml Total Protein (6.4-8.2) gm/dl Albumin (3.4-5.0) gm/dl Globulin (2.5-4.0) gm/dl Albumin/Globulin Ratio (0.9-2) Beta-Hydroxybutyric Acd (0.2-2.81) mg/dl Urine Color Yellow Urine Appearance Clear (Clear) Urine pH 5.0 (4.5-7.5) Ur Specific [place] 1.032 H (1.000-1.030) Urine Protein Negative (Negative) Urine Glucose (UA) 3+ H (Negative) Urine Ketones Negative (Negative) Urine Blood Negative (Negative) Urine Nitrite Negative (Negative) Urine Bilirubin Negative (Negative) Urine Urobilinogen Negative (Negative) Ur Leukocyte Esterase Negative (Negative) 05/07/19 05/07/19 05/07/19 Range/Units 19:59 19:59 19:59 WBC 8.38 (4.8-10.8) K/uL RBC 4.58 L (4.7-6.1) M/uL Hgb 14.6 (14.0-18.0) g/dL Hct 42.4 (42-52) % MCV 92.6 (80-100) fL MCH 31.9 (25-34) pg MCHC 34.4 (32-36) g/dL RDW Std Deviation 44.5 (36.4-46.3) fL RDW Coeff of Krysta 13.1 (11.5-14.5) % Plt Count 232 (130-400) K/uL MPV 10.7 H (7.4-10.4) fL Immature Gran % (Auto) 0.5 % Neut % (Auto) 70.7 % Lymph % (Auto) 21.2 % [place] % (Auto) 6.3 % Eos % (Auto) 1.1 % Baso % (Auto) 0.2 % Immature Gran # (Auto) 0.04 H (0.00-0.02) K/uL Neut # (Auto) 5.92 (1.4-6.5) K/uL Lymph # (Auto) 1.78 (1.2-3.4) K/uL [place] # (Auto) 0.53 (0.11-0.59) K/uL Eos # (Auto) 0.09 (0-0.5) K/uL Baso # (Auto) 0.02 (0-0.2) K/uL Sodium 134 L (136-145) mmol/L Potassium 4.3 (3.5-5.1) mmol/L Chloride 101 (98-107) mmol/L Carbon Dioxide 27 (21-32) mmol/L Anion Gap 6.0 (3-11) BUN 25 H (7-18) mg/dl Creatinine 1.49 H (0.6-1.4) mg/dl Est Cr Clr Drug Dosing 59.0 ml/min Est GFR ( Amer) 54.7 Est GFR (Non-Af Amer) 47.2 BUN/Creatinine Ratio 16.7 (10-20) Glucose 412 H* (70-99) mg/dl POC Glucose (70-99) Estimat Average Glucose mg/dl Hemoglobin A1c (4.5-5.6) % Calcium 9.1 (8.5-10.1) mg/dl Magnesium (1.8-2.4) mg/dl Total Bilirubin 0.4 (0.2-1) mg/dl AST 8 L (15-37) U/L ALT 28 (12-78) U/L Alkaline Phosphatase 106 (45-117) U/L Troponin I < 0.015 (0-0.045) ng/ml Total Protein 7.2 (6.4-8.2) gm/dl Albumin 3.6 (3.4-5.0) gm/dl Globulin 3.6 (2.5-4.0) gm/dl Albumin/Globulin Ratio 1.0 (0.9-2) Beta-Hydroxybutyric Acd 1.47 (0.2-2.81) mg/dl Urine Color Urine Appearance (Clear) Urine pH (4.5-7.5) Ur Specific [place] (1.000-1.030) Urine Protein (Negative) Urine Glucose (UA) (Negative) Urine Ketones (Negative) Urine Blood (Negative) Urine Nitrite (Negative) Urine Bilirubin (Negative) Urine Urobilinogen (Negative) Ur Leukocyte Esterase (Negative) Diagnostic Findings MRI brain (05/07) FINDINGS: Brain parenchyma: There is age-related involutional change noting mild subcortical and periventricular microangiopathic disease. There is no hemorrhage or mass effect. There is no restricted diffusion to suggest acute ischemia. Rinaldi-white matter differentiation is preserved. No extra-axial fluid collection is seen. The cerebellar tonsils are normal in configuration. Ventricles, sulci, and cisterns: Prominent secondary to involutional change. The ventricles are dilated to a greater extent than the cortical sulci. Pituitary and sella: Unremarkable. Intracranial vasculature: Normal flow voids are maintained at the skull base. Orbits: The bony orbits are grossly intact. Orbital contents are normal in appearance noting bilateral ocular lens implants. Sinuses and mastoids: Clear. Calvarium: Unremarkable. Cervical cord: Partially visualized cervical spinal cord is normal in morphology and signal intensity. IMPRESSION: There is no hemorrhage, mass effect, or evidence of acute ischemia. CT head noncon (05/07/2019) Findings: The paranasal sinuses and mastoid air cells are clear. The calvarium and skull base are intact. There is no mass, hematoma, midline shift, acute infarct. Mild ventriculomegaly involving the lateral and third ventricles. This is out of proportion to the sulcal atrophy. This is similar to the prior study. Impression: Mild ventriculomegaly involving the lateral and third ventricles. This is out of proportion to the sulcal atrophy. This is similar to the prior study. This is nonspecific but could be seen in the setting of normal pressure hydrocephalus. Neurology consultation recommended. Medications Administered Current Inpatient Medications Acetaminophen (Tylenol) 650 mg PO Q4H PRN PRN Reason: pain/fever Stop: 06/07/19 00:34 Allopurinol (Zyloprim) 100 mg PO QAM [facility] Stop: 06/07/19 08:59 Last Admin: 05/08/19 08:03 Dose: 100 mg Documented by: Amphetamine/Dextroamphetamine (Adderall) 20 mg PO BID@0700,1400 [facility] Stop: 05/22/19 06:59 Last Admin: 05/08/19 08:02 Dose: 20 mg Documented by: Aspirin (Ecotrin Ectab) 81 mg PO DAILY [facility] Stop: 06/07/19 08:59 Last Admin: 05/08/19 08:02 Dose: 81 mg Documented by: Atorvastatin Calcium (Lipitor) 40 mg PO QAM [facility] Stop: 06/07/19 08:59 Last Admin: 05/08/19 08:03 Dose: 40 mg Documented by: Bupropion HCl (Wellbutrin-Sr) 200 mg PO BID [facility] Stop: 06/07/19 08:59 Last Admin: 05/08/19 08:03 Dose: 200 mg Documented by: Citalopram [facility] ([facility]) [facility] Stop: 06/07/19 08:59 Last Admin: 05/08/19 08:04 Dose: 20 mg Documented by: Dextrose (Dextrose 50%) 25 - 50 ml IV UD PRN; Protocol PRN Reason: Hypoglycemia Protocol Stop: 06/07/19 00:44 Glucagon (Glucagen) 1 mg IM UD PRN; Protocol PRN Reason: Hypoglycemia Protocol Stop: 06/07/19 00:44 Glucose (Glucose 40%) 15 - 30 gm PO UD PRN; Protocol PRN Reason: Hypoglycemia Protocol Stop: 06/07/19 00:44 Glucose (Dex4 Glucose) 4 - 8 tabs PO UD PRN; Protocol PRN Reason: Hypoglycemia Protocol Stop: 06/07/19 00:44 Lisinopril/HCTZ (Prinzide 20/25mg) 1 tab PO QAM [facility] Stop: 06/07/19 08:59 Last Admin: 05/08/19 08:03 Dose: 1 tab Documented by: Insulin Aspart (Novolog Flexpen) 0 units SC ACHS [facility] Stop: 06/07/19 00:59 Last Admin: 05/08/19 08:06 Dose: 13 units Documented by: Miscellaneous (Order Awaiting Action) 1 ea N/A QS [facility] Stop: 06/07/19 00:59 Last Admin: 05/08/19 07:36 Dose: Not Given Documented by: Miscellaneous (Carbohydrates For Hypoglycemia) 15 - 30 gm PO UD PRN PRN Reason: Hypoglycemia Treatment Stop: 06/07/19 00:44 Miscellaneous Information (Consult Glycemic Management Pharmacy) 1 ea N/A UD PRN PRN Reason: Consult Stop: 06/07/19 05:16 Ondansetron HCl (Zofran) 4 mg IV Q6H PRN PRN Reason: Nausea Stop: 06/07/19 00:34 Polyethylene Glycol (Miralax Powder Packet) 17 gm PO DAILY PRN PRN Reason: Constipation Stop: 06/07/19 00:34 (1) Falls Encounter type: initial encounter Qualified Code(s): W19.XXXA - Unspecified fall, initial encounter
[2019-05-08] MEDS ORDERED: POTASSIUM CHLORIDE 20 MEQ TABCR PO ONE (14:15)
--- NOTE | 2019-05-08 14:43 | Pharmacy Report ---
Glycemic Control Consultation - Date of Service May 08, 2019 - Scope Scope: Glycemic Pharmacist consulted by Dr Dominguez on 05/08 for glycemic control and to write orders per [facility] inpatient glycemic control protocol - Objective Weight: 113 kg Accuchecks BSG (last 24hrs): 05/07/19 05/07/19 05/07/19 19:59 21:55 23:52 Glucose 412 H* POC Glucose 349 H* 273 H 05/08/19 05/08/19 05/08/19 00:24 00:26 00:27 Glucose POC Glucose 312 H* 271 H 297 H 05/08/19 05/08/19 05/08/19 05:07 05:22 07:41 Glucose 279 H POC Glucose 282 H 314 H* 05/08/19 05/08/19 07:42 11:40 Glucose POC Glucose 305 H* 260 H Laboratory Data (last 24hrs): 05/07/19 05/08/19 19:59 05:22 Potassium 4.3 3.5 D Carbon Dioxide 27 27 Anion Gap 6.0 7.0 Creatinine 1.49 H 1.20 Est Cr Clr Drug Dosing 59.0 73.1 Beta-Hydroxybutyric Acd 1.47 HbA1c: Hemoglobin A1c 11.5 % (4.5-5.6) H 05/08/19 05:22 - Recent Pertinent Medications Outpatient Anti-diabetic Regimen: * metformin * A1c = 11.5 % 05/08/19 Risk Factors for Insulin Resistance: * Diet: T2DM - Assessment & Plan Assessment & Plan: ASSESSMENT: * 68 year old admitted after fall/ambulatory dysfunction. PMHx significant for htn, CKD, prostate cancer, gout * Type 2 diabetic managed on metformin at home - BSGs elevated on arrival, A1C is ~11% indicating poor control * Initiated basal bolus insulin on admission PLAN FOR INPATIENT GLYCEMIC CONTROL: * Basal insulin * Lantus 25 units (~0.2 unit/kg) - added scale for HS * Bolus insulin * NovoLog per scale ACHS or Q6hrs while NPO * Goal Range: Low 110 mg/dL - High 140 mg/dL * Correction Factor: 20 mg/dL/unit * Nutritional / Prandial insulin per carb ratio of 1 unit per 6 grams CHO consumed * Please note that the plan above was derived based on current level of insulin resistance and hospital stress. These recommendations are appropriate for inpatient admission only. Plan of care upon discharge will need to be reassessed to avoid potential outpatient hypo/hyperglycemia. Thank you.
--- NOTE | 2019-05-08 15:59 | Communication Note ---
Date of Service: May 08, 2019 I seen and interviewed Mr. Crain today, have discussed his case with his , reviewed the imaging studies at this point have a history of slow mild cognitive impairment over the past several years and several months of a gait issue with insecurity of walking and short stiff steps rather than a broad-based apractic gait that would be more typical of the clinically suspected "normal pressure hydrocephalus". Indeed imaging studies of the brain with MRI show what I feel is cortical atrophy and compensatory ventricular dilatation with minimal white matter changes and no evidence for transependymal re-absorption of CSF in a pattern that would not support normal pressure hydrocephalus in my opinion at least On exam he is pretty reticent, rather superficial, relies on his for history, has a mild bradykinetic appearance, has limited upward gaze on volitional eye movements, short stiff movements of his lower extremities, bilateral upgoing toes, reduced reflexes likely due to a polyneuropathy and normal strength, reduced facility rapid repetitive motions in the lower extremities, slight increased tone, and reduced vibratory sense light touch and proprioception in the distal lower extremities Not sure what is going on here but I do not feel this is normal pressure hydrocephalus and do feel we did need to evaluate his spine for potential compressive myelopathy degree at the cervical level and will suggest that we get both an MRI of his cervical and thoracic spine at this point, and if these are unremarkable I have an outpatient evaluation of him in our office, and EMG to assess the degree of neuropathy and perhaps an opinion from 1 of our movement disorders experts about whether this could be early supranuclear palsy or another degenerative process of the central nervous system I have a better handle on things tomorrow and imaging studies are available A full consultation note has been dictated but will be typed later Alhaji Yadav MD
[2019-05-08] MEDS ORDERED: LORazepam 0.5 MG TAB PO SCH (16:30)
--- NOTE | 2019-05-08 16:44 | Consultation Report ---
DATE OF CONSULTATION: 05/08/2019 HISTORY OF PRESENT ILLNESS: Mr. Crain is a 68-year-old white right-handed retired engineering team supervisor, patient of Dr. Mitchel Black, who suffers from diabetes, hypertension, kidney disease, overactive bladder, prostate cancer, due for a prostatectomy in the next several months, gout, chronic depression who presented to the hospital with increasing ambulatory dysfunction of several months' duration with frequent falls. This was preceded according to his by several years of increasing mild cognitive impairment with a need for assistance on memory based tasks and preceded by urinary bladder issues attributed to his prostate issues. The gait disturbance was initially mild, nonspecific, characterized by imbalance, but has gotten worse and apparently he was seen by his primary care physician and was recommended that he needed more conditioning. All this culminated in an issue yesterday when he was unable to balance, went down to the ground and because of the progressive nature, he was brought to the hospital, evaluated, CAT scan with little change from one done several weeks previously and suggested the remote possibility of normal pressure hydrocephalus, but did not show any significant leukoencephalopathy, did show some cortical atrophy and mild ventricular dilatation. A subsequent MRI has really been interpreted as being age appropriate and the ventricular dilatation has not been commented on by the radiologist. I have looked at this and I agree that this is not the typical scan for normal pressure hydrocephalus and I think there is more cortical atrophy than was demonstrable on the CT scan. That having been said, he has been in the hospital now overnight. Neurology has been asked to assess him. PAST MEDICAL HISTORY: As above. MEDICATIONS: At home include aspirin, VESIcare, metformin, allopurinol, Adderall, Lipitor, bupropion, Celexa, lisinopril/hydrochlorothiazide and these have been stable. ALLERGIES: He has no known drug allergies. FAMILY HISTORY: Noncontributory. SOCIAL HISTORY: Reveals him to be a nonsmoker, rare user of ethanol and nonuser of illicit drugs and a retired engineering team supervisor. REVIEW OF SYSTEMS: Positive for several years of increasing mild cognitive impairment, several months of gait disturbance and the bladder issues attributed to the prostate and is otherwise pretty unremarkable and specifically reveals no clearly definable problems referable to the head, eyes, ears, nose and throat, cardiovascular, pulmonary, gastrointestinal, genitourinary, musculoskeletal, dermatologic, hematologic, or endocrinologic systems other than those related to his depression, diabetes and hypertension and medications for treatment thereof. PHYSICAL EXAMINATION: VITAL SIGNS: Yesterday in the Emergency Room, his temperature was 36.5, pulse was 71, respiratory rate was 18, blood pressure was 141/62 and his oxygen saturations were 94%. GENERAL: He was moderately overnourished. HEENT: He had no abnormalities on examination of head, eyes, ears, nose and throat. NECK: No carotid bruits were heard. CARDIAC: Rate and rhythm were normal without murmurs. LUNGS: Clear. ABDOMEN: Soft and nontender but was obese. No organomegaly was palpable. EXTREMITIES: Peripheral pulses were intact. There was no peripheral edema and only mild arthritic deformities of the joints. NEUROLOGIC: Today, neurologically, he is awake, alert, a little concrete in his thinking, not very forthcoming when it comes to history, relies on his for a lot of the history and questions. He has what I feel is limited upward gaze. Otherwise, normal eye movements, normal visual leung, poorly seen ocular fundi, grossly intact visual acuity, somewhat bradykinetic facial expression, but a negative Myerson sign. Normal facial motility and strength. Normal facial sensation. His gait is narrow based, a little stiff. I would not call this particularly apractic. It is certainly not ataxic and had good associated movements. I do not see any tremor of the upper extremities. There is no drift or pronation sign. There is no tick like movements. Reflexes are absent to reduced at the ankles, but toes are upgoing bilaterally and knee jerks are present but hypoactive and the upper extremities are normal. There are no Rajeev signs. Strength testing is actually excellent without atrophy or fasciculations in any muscle group and sensory examination reveals a stocking hypesthesia to vibration, light touch, temperature and slightly reduced proprioception of the lower extremities, but nothing of this is very dramatic nor does it explain the gait disturbance very well. 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 At this point, he needs imaging of the cervical spine and thoracic spine to be sure we are not dealing with a compressive myelopathy to explain the upgoing toes as I really do not see anything on brain imaging to do so and if this is negative, then he is going to need physical therapy assessment, outpatient therapy and an outpatient neurology evaluation where we can do a little more extensive exam, perform an EMG, and perhaps consider a referral to a movement disorder specialist if indeed the supranuclear gaze disturbance appears to be significant. The diagnosis here therefore is not established, but in my opinion is not normal pressure hydrocephalus. This may be a multifactorial gait disturbance with elements of cervical spondylosis, polyneuropathy and the cognitive impairment syndrome of uncertain origin rather than a single unifying entity Time will tell. CARLITOSD
[2019-05-08] MEDS: TOLTERODINE TARTRATE 1 MG TAB PO SCH (20:46)
[2019-05-08] MEDS ORDERED: GADOBUTROL 65ML VIAL IV PRN (23:06)
[2019-05-09] MEDS: INSULIN ASPART 100 UNITS/ML 3 ML PEN SC SCH ×6 (00:01→20:30)
[2019-05-09 06:47] LABS: Hematocrit (blood only) 43.5 % (42-52); Hemoglobin 15.2 g/dL (14.0-18.0); Mean Corpuscular Hemoglobin 32.8 pg (25-34); Mean Corpuscular Hgb Conc 34.9 g/dL (32-36); Mean Corpuscular Volume 93.8 fL (80-100); Mean Platelet Volume 10.6 fL (7.4-10.4); Platelet Count 218 K/uL (130-400); RDW Coefficient of Variation 13.4 % (11.5-14.5); RDW Standard Deviation 45.8 fL (36.4-46.3); Red Blood Count 4.64 M/uL (4.7-6.1); White Blood Count 9.81 K/uL (4.8-10.8)
[2019-05-09 07:16] LABS: BUN Creatinine Ratio 14.1 (10-20); Creatinine Clr Calc Pharmacy 73.1 ml/min; Est GFR (African American) 71.1; Est GFR (Non-African American) 61.3; Potassium 3.5 mmol/L (3.5-5.1)
--- NOTE | 2019-05-09 07:20 | Magnetic Resonance Report ---
THORACIC SPINE MRI WITH AND WITHOUT CONTRAST HISTORY: Fall. myelopathy TECHNIQUE: Multiplanar multisequence MRI of the thoracic spine was performed both before and after th e intravenous administration of contrast. COMPARISON: None. FINDINGS: Motion artifact on all sequences resulting in suboptimal evaluation of the thoracic spine. Normal mar row signal intensity seen throughout the visualized osseous structures. No fracture or subluxation. A lignment is intact. Mild disc space narrowing throughout the thoracic spine consistent with degenerat sushila change. The thoracic spinal cord appears to be normal in course, caliber, and signal intensity. N o abnormal enhancement. A 7 mm T1 and T2 hyperintense lesion within the T7 vertebral body. This likel y represents a hemangioma. Right anterior osteophytes within the mid to lower thoracic spine. No sign ificant central canal or neural foraminal narrowing. No disc herniations identified. Trace paraverteb ral edema at the T10-T12 levels. IMPRESSION: 1. Motion artifact resulting in suboptimal evaluation. 2. Trace paravertebral edema at the T10-T12 levels. This is of uncertain clinical significance. No ab normal marrow signal or fractures identified 3. The thoracic spinal cord appears to be normal in course, caliber, and signal intensity. Electronically signed by: Sami Jon M.D. 05/09/2019 7:19 AM
--- NOTE | 2019-05-09 08:04 | Magnetic Resonance Report ---
MRI OF THE CERVICAL SPINE COMBO CLINICAL HISTORY: Myelopathy. COMPARISON STUDY: CT of the cervical spine dated 04/19/2019. TECHNIQUE: MRI of the cervical spine is performed utilizing various T1 and T2-weighted sequences in t he axial and sagittal planes. Contrast-enhanced sequences are acquired following the IV administratio n of 11.2 cc of Gadavist. The examination is significantly degraded by motion artifact. FINDINGS: Cervical spine: Vertebral body height and alignment are maintained throughout the cervical spine. The atlantodental articulation is maintained. Small anterior osteophytes are seen throughout. The spinou s processes are intact. No destructive bony lesion is seen. Chronic degenerative endplate change is n oted at C6-C7. Minimal endplate edema is noted at C7-T1. Intervertebral discs: Degenerative disc desiccation and loss of height is seen throughout the cervica l spine. Loss of height is mild to moderate from C4-C5 through C6-C7. Spinal cord: The cervical spinal cord is normal in morphology and signal intensity. No abnormal postc ontrast enhancement is identified. C2-C3: Unremarkable. C3-C4: A posterior disc osteophyte complex minimally effaces the ventral subarachnoid space. Uncovert ebral and facet arthropathy cause moderate bilateral neural foraminal stenosis. C4-C5: A posterior disc osteophyte complex minimally effaces the ventral subarachnoid space. Uncovert ebral and facet arthropathy cause moderate to severe bilateral neural foraminal stenosis. C5-C6: A posterior disc osteophyte complex effaces the ventral subarachnoid space. Uncovertebral and facet arthropathy cause mild to moderate right and mild left neural foraminal stenosis. C6-C7: A posterior disc osteophyte complex eccentric to the left effaces the ventral subarachnoid spa ce. Uncovertebral and facet arthropathy cause mild to moderate left neural foraminal stenosis. C7-T1: Unremarkable. Soft tissues: The prevertebral and paraspinous soft tissues are normal in appearance. There is a 1.9 cm nodule in the left lobe of the thyroid gland. Brain parenchyma: The visualized brain parenchyma at the skull base is normal in appearance. IMPRESSION: 1. Motion compromised examination. 2. The cervical spinal cord is normal in morphology and signal intensity. 3. Mild multilevel cervical spondylosis as above. See discussion for detailed level by level analysis . 4. Large left lobe thyroid nodule. Consider nonemergent thyroid ultrasound in follow-up. Dictated: 05/09/2019 7:19 AM Transcribed: 05/09/2019 7:59 AM Nadja [id number] [email or web address] Electronically signed by: Domingo Welch M.D. 05/09/2019 8:03 AM
[2019-05-09] MEDS: LISINOPRIL/HCTZ 20/25MG 1 TAB PO SCH (08:07)
[2019-05-09] MEDS: ASPIRIN 81 MG ECTAB PO SCH (08:07)
[2019-05-09] MEDS: TOLTERODINE TARTRATE 1 MG TAB PO SCH ×2 (08:07→20:30)
[2019-05-09] MEDS: AMPHETAMINE ASP/SULF/DEXTRAMPH 20 MG TAB PO SCH ×2 (08:07→14:06)
[2019-05-09] MEDS: ATORVASTATIN 40 MG TAB PO SCH (08:08)
[2019-05-09] MEDS: ALLOPURINOL 100 MG TAB PO SCH (08:08)
[2019-05-09] MEDS: CITALOPRAM 20 MG TAB PO SCH (08:08)
[2019-05-09] MEDS: BuPROPion SR 100 MG TABCR PO SCH ×2 (08:08→20:29)
[2019-05-09] MEDS: INSULIN GLARGINE SOLOSTAR 100 UNITS/ML 3 ML PEN SC SCH ×2 (08:09→20:30)
--- NOTE | 2019-05-09 14:22 | Neurology Progress Note ---
Date of Service May 09, 2019 Assessment & Plan (1) Ambulatory dysfunction: 1. MRI brain- no acute findings 2. MRI t/c spine- trace paravertebral edema at T10-12. 3. PT/OT for discharge planning 4. referral to movement specialist as out patient for possible supranuclear palsy- but we will see him in our office first and then refer as needed 5. EMG of LE as outpatient will be arranged for further evaluation of neuropathy 6. is concerned about his memory and was question the diagnosis of NPH. we will further evaluate at the office for this also follow up in our office 4-6 weeks after discharge Alejandra Garcia PAC schedule Supervising Physician Co-Signing Physician Notes I have seen and discussed above patient with Dr Alhaji Yadav, neurology Mr. Crain looks brighter today and states that he is been walking and feels better but I am not sure this is entirely accurate as he does have a cognitive impairment issue, still has some supranuclear gaze abnormalities and gait disturbance is really does not fit the picture or historical profile of normal pressure hydrocephalus. 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 We have no clear explanation for the gait disturbance and I am suspicious this may be a form of movement emerging movement disorder perhaps supranuclear palsy but I like to have old more time and the opportunity to assess him on an outpatient basis in our office when examination is a little more accurate and complete I would suggest he receives outpatient physical therapy, and we will be happy to take a look at him again in about 4 to 6 weeks, reassess the situation and if the family is still concerned about normal pressure hydrocephalus will be happy to have our neurosurgical colleagues and then will review the imaging and see if the feel this is a reasonable consideration at this point I do not and spinal imaging shows no evidence for significant myelopathy and does reveal evidence for some soft tissue edema that probably consistent with his periodic falls and spinal trauma We are going to sign off the case with the above recommendations Alhaji Murphy is a 68 year old male with PMH- DM, HTN, CKD III, overactive bladder, prostrate CA, gout, chronic depression who presented with ambulatory dysfunction. He was walking got dizzy and grabbed a table because he was going to fall and went down to the ground. He states he didn't hit his head or injure himself This has been happening for the past 2-3 months. He has also had some urinary incontinence which he feels is from his No earache, no runny nose, no sore throat, no cough. Sometimes he has some swallowing issues because his mouth gets so dry. He also gets SOB with ambulation. He is not sure if PT has been in to walk him but he states he has been up ambulating in the room. denies CP, SOB, abdominal pain, N, V, one sided weakness, numbness tingling, vision changes. 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, hip flex bilaterally 5/5 sensation intact to light cool touch Results & Data Vital Signs (Past 12 Hours) Vital Signs Temp Pulse Resp BP Pulse Ox 05/09/19 07:46 36.9 C 75 18 123/68 93 Laboratory Results Abnormal lab results 05/08/19 05/08/19 05/08/19 Range/Units 15:57 20:10 23:59 RBC (4.7-6.1) M/uL MPV (7.4-10.4) fL Glucose (70-99) mg/dl POC Glucose 292 H 295 H 166 H (70-99) 05/09/19 05/09/19 05/09/19 Range/Units 04:30 06:13 06:13 RBC 4.64 L (4.7-6.1) M/uL MPV 10.6 H (7.4-10.4) fL Glucose 213 H (70-99) mg/dl POC Glucose 215 H (70-99) 05/09/19 05/09/19 Range/Units 07:30 11:39 RBC (4.7-6.1) M/uL MPV (7.4-10.4) fL Glucose (70-99) mg/dl POC Glucose 225 H 240 H (70-99) Diagnostic Findings Thoracic spine MRI -Motion artifact resulting in suboptimal evaluation. Trace paravertebral edema at the T10-T12 levels. This is of uncertain clinical significance. No abnormal marrow signal or fractures identified The thoracic spinal cord appears to be normal in course, caliber, and signal intensity. C cpine MRI- . Motion compromised examination. The cervical spinal cord is normal in morphology and signal intensity. Mild multilevel cervical spondylosis as above. See discussion for detailed level by level analysis. Large left lobe thyroid nodule. Consider nonemergent thyroid ultrasound in follow-up. MRI brain-there is no hemorrhage, mass effect, or evidence of acute ischemia.
--- NOTE | 2019-05-09 15:47 | Pharmacy Report ---
Pharmacy Glycemic Short Note 2 - Date of Service May 09, 2019 - Glycemic Short BSG Results (Last 24 hours): 05/08/19 05/08/19 05/08/19 15:57 20:10 23:59 Glucose POC Glucose 292 H 295 H 166 H 05/09/19 05/09/19 05/09/19 04:30 06:13 07:30 Glucose 213 H POC Glucose 215 H 225 H 05/09/19 11:39 Glucose POC Glucose 240 H OUTPATIENT ANTIDIABETIC REGIMEN: * metformin 500 mg BID * A1c = 11.5 % 05/08/19 Risk Factors for Insulin Resistance: * Diet: T2DM ASSESSMENT: * 68 year old admitted after fall/ambulatory dysfunction. PMHx significant for htn, CKD, prostate cancer, gout * Fasting BSG remains elevated despite 40 units of basal insulin yesterday. Will continue to titrate. * Post prandial BSGs are also above goal (all > 200 mg/dL) therefore novolog parameters have been tightened to 12/4. I suspect this will be too aggressive once insulin resistance has improved. PLAN FOR INPATIENT GLYCEMIC CONTROL: * Basal insulin * Lantus per scale BID: * 10 units for BSG < 140 * 20 units for BSG 140-180 * 30 units for BSG > 180 * Bolus insulin * NovoLog per scale ACHS or Q6hrs while NPO * Goal Range: Low 110 mg/dL - High 140 mg/dL * Correction Factor: 12 mg/dL/unit * Nutritional / Prandial insulin per carb ratio of 1 unit per 4 grams CHO consumed * Will likely need to back off on 05/10 PLAN FOR DISCHARGE: * A1c = 11.5% (05/08/19) * Goal A1c = < 7% * A reasonable A1C goal for many non- adults is A1c less than 7%. Patient's A1c was previously 6.7% in March of 2018. * Patient reports decreased physical activity and need for improvement in diet. * Recommend increasing metformin dose to 500 mg with breakfast and 1000 mg with dinner. * Continue to titrate to goal dose of 2000 mg per day. May increase in 500 mg increments on a weekly basis. * Administer with food to limit GI side effects. * Recommend the addition of once daily basal insulin (lantus or levemir pending insurance coverage). * Start 35 units SQ once daily and titrate per outpatient provider * This is a conservative starting dose since less than 48 hours of BSG data is available at this time * Recommend prompt f/u (~5 days) Note; For A1c > 10%, triple therapy with metformin + basal insulin + (GLP1-RA OR prandial insulin) is the standard of care. The need for bolus insulin can be assessed by outpatient provider once the above changes have been made and the effect on glycemic control is known.
[2019-05-09] MEDS ORDERED: POLYETHYLENE (MIRALAX) 17 GM PACK PO PRN (18:10)
--- NOTE | 2019-05-09 18:13 | Hospitalist Progress Note ---
Date of Service May 09, 2019 Assessment & Plan (1) Falls: (2) Weakness: (3) Ambulatory dysfunction: This is a 68-year-old male who presents with fall and ambulatory dysfunction. Fall and ambulatory dysfunction. CT head is showing possible normal pressure hydrocephalus, it was noted on the previous CAT scan too - patient is also having urinary incontinence for few months. He attributes it to his prostate cancer and he also has some memory issues and he is having ambulatory dysfunction for the last 2-3 months. All these symptoms could be from normal pressure hydrocephalus. - MRI of brain, cervical and thoracic spine obtained (per neurology recom mendation) - neurology consulted -at this time do not believe this is normal pressure hydrocephalus, however they are also going to follow-up with the patient as outpatient, there is concern for possible supranuclear palsy, and patient may need referral to movement specialist as outpatient, EMG of LE as outpatient will also be arranged to further evaluate patient's neuropathy -plan to follow-up with neurology in 4 to 6 weeks after discharge - PT/OT -recommend inpatient rehab (4) Diabetes mellitus type 2, uncontrolled: Hemoglobin A1c 11.5% On admission in the ER glucose level at 400s, received IV insulin At home takes metformin, held during hospitalization Pharm glycemic mngmt and diabetes education consulted -please see their note for further details, as outpatient, patient will likely use basal insulin, 35 units and metformin. Discussed with the patient and his on the phone, that pt will need insulin when discharged, (pt will need to learn how to use insulin), patient is agreeable Will continue to monitor blood glucose levels, and will adjust insulin as needed (5) Hyperlipidemia: Continue home statin (6) CKD stage 3 secondary to diabetes: Baseline creatinine 1.1-1.4, admission creatinine 1.49 -Now improved, back to baseline, creatinine 1.2 -We will continue to monitor renal function -We will try to avoid nephrotoxic agents, NSAIDs, contrast, etc. History of prostate cancer, supposed to get surgery in [place] on 05/20/2019. Continue his VESIcare for urinary incontinence. (7) Gout: Continue home allopurinol (8) MCKENNA (obstructive sleep apnea): On CPAP at bedtime (9) Depression: Continue home bupropion and citalopram -Follow-up with psychiatry (10) DVT prophylaxis: SCDs for now (11) Discharge planning issues: Plan to discharge to inpatient rehab Subjective No acute events overnight. Patient is comfortably sitting in the chair, pleasant and answers questions appropriately. Denies having any headache today. Also denies any fevers, chills, chest pain, shortness of breath, abdominal pain, nausea, vomiting. Patient was seen by neurology yesterday, recommended MRI of cervical and thorac ic spine which he underwent yesterday. Review of Systems Review of Systems: All systems reviewed & are unremarkable except as noted in HPI & below Constitutional: no fever and no chills Respiratory: no cough, no chest congestion, no dyspnea and no pain on inspiration Cardiovascular: no chest pain, no palpitations and no edema Gastrointestinal: no abdominal pain, no nausea and no vomiting Physical Exam Constitutional: well developed and well nourished; no acute distress Eyes: PERRL, conjunctivae normal, anicteric sclerae EOM intact bilaterally ENMT: external ear and nose normal, oropharynx normal Neck: normal visual inspection Respiratory: normal respiratory effort, lungs clear to auscultation Auscultation: no crackles, no rales, no rhonchi and no wheezes Cardiovascular: RRR, no murmur, no edema Heart Sounds: no gallop Chest (Breasts): Chest: normal inspection of chest Gastrointestinal (Abdomen): normal bowel sounds, soft, nontender, no hepatosplenomegaly Inspection/Auscultation: abdomen normal to inspection; abdomen not distended Percussion/Palpation: abdomen nontender and no guarding Musculoskeletal: Head/Neck/Chest: normocephalic, head atraumatic and neck supple Extremities: extremities normal to inspection Skin: no rashes, warm and dry Neurologic: PERRL, EOMI, accommodation nl, no face palsy, no dysarthria moves all extremities Psychiatric: A+Ox3, euthymic affect Speech: normal rate/rhythm/volume of speech Lymphatic: no lymphedema Results & Data Vital Signs (Past 12 Hours) Vital Signs Temp Pulse Pulse Resp BP Pulse Ox 05/09/19 15:43 36.8 C 104 H 18 125/75 93 05/09/19 07:46 36.9 C 75 18 123/68 93 (1) Falls Encounter type: initial encounter Qualified Code(s): W19.XXXA - Unspecified fall, initial encounter
[2019-05-09] MEDS: DOCUSATE SODIUM/SENNA 50/8.6MG TAB PO SCH (20:29)
[2019-05-10] MEDS ORDERED: INSULIN ASPART 100 UNITS/ML 3 ML PEN SC SCH
[2019-05-10 06:43] LABS: BUN Creatinine Ratio 18.6 (10-20); Calcium 8.8 mg/dl (8.5-10.1); Creatinine Clr Calc Pharmacy 63.6 ml/min; Est GFR (Non-African American) 51.8; Potassium 3.4 mmol/L (3.5-5.1)
[2019-05-10] MEDS: AMPHETAMINE ASP/SULF/DEXTRAMPH 20 MG TAB PO SCH (08:35)
[2019-05-10] MEDS: INSULIN ASPART 100 UNITS/ML 3 ML PEN SC SCH ×2 (08:36→12:52)
[2019-05-10] MEDS: ALLOPURINOL 100 MG TAB PO SCH (08:37)
[2019-05-10] MEDS: BuPROPion SR 100 MG TABCR PO SCH (08:37)
[2019-05-10] MEDS: ATORVASTATIN 40 MG TAB PO SCH (08:37)
[2019-05-10] MEDS: TOLTERODINE TARTRATE 1 MG TAB PO SCH (08:37)
[2019-05-10] MEDS: DOCUSATE SODIUM/SENNA 50/8.6MG TAB PO SCH (08:37)
[2019-05-10] MEDS: CITALOPRAM 20 MG TAB PO SCH (08:38)
[2019-05-10] MEDS: LISINOPRIL/HCTZ 20/25MG 1 TAB PO SCH (08:38)
[2019-05-10] MEDS: ASPIRIN 81 MG ECTAB PO SCH (08:38)
[2019-05-10] MEDS: INSULIN GLARGINE SOLOSTAR 100 UNITS/ML 3 ML PEN SC SCH (08:39)
--- NOTE | 2019-05-10 09:36 | Hospitalist Progress Note ---
Date of Service May 10, 2019 Assessment & Plan (1) Falls: (2) Weakness: (3) Ambulatory dysfunction: This is a 68-year-old male who presents with fall and ambulatory dysfunction. Fall and ambulatory dysfunction. CT head showing possible normal pressure hydrocephalus, it was noted on the previous CAT scan too - patient is also having urinary incontinence for few months. He attributes it to his prostate cancer and he also has some memory issues and he is having ambulatory dysfunction for the last 2-3 months. All these symptoms could be from normal pressure hydrocephalus - MRI of brain, cervical and thoracic spine obtained (per neurology recommenda tion) - neurology consulted -at this time do not believe this is normal pressure hydrocephalus, however they are also going to follow-up with the patient as outpatient, there is concern for possible supranuclear palsy, and patient may need referral to movement specialist as outpatient, EMG of LE as outpatient will also be arranged to further evaluate patient's neuropathy -plan to follow-up with neurology in 4 to 6 weeks after discharge - PT/OT -recommend inpatient rehab (plan to d/c to [facility]) (4) Diabetes mellitus type 2, uncontrolled: Hemoglobin A1c 11.5% On admission in the ER glucose level at 400s, received IV insulin At home takes metformin, held during hospitalization Pharm glycemic mngmt and diabetes education consulted -please see their note for further details, as outpatient, patient will likely use basal insulin, 35 units qhs and metformin. While in the hospital, patient's been getting insulin glargine, 20 units in the morning and 30 units at night Discussed with the patient and his Katty (on the phone), that pt will need insulin when discharged, (pt will need to learn how to use insulin), patient is agreeable Will continue to monitor blood glucose levels, and will adjust insulin as needed (5) Hyperlipidemia: Continue home statin (6) CKD stage 3 secondary to diabetes: Baseline creatinine 1.1-1.4, admission creatinine 1.49 -Now improved, back to baseline -We will continue to monitor renal function -We will try to avoid nephrotoxic agents, NSAIDs, contrast, etc. History of prostate cancer, supposed to get surgery in [place] on 05/20/2019. Continue his VESIcare for urinary incontinence. (7) Gout: Continue home allopurinol (8) MCKENNA (obstructive sleep apnea): On CPAP at bedtime (9) Depression: Continue home bupropion and citalopram -Follow-up with psychiatry (10) DVT prophylaxis: SCDs for now (11) Discharge planning issues: Plan to discharge to inpatient rehab ([facility]) Subjective No acute events overnight. Patient is comfortably sitting in the chair, pleasant and answers questions appropriately. Denies having any fevers, chills, chest pain, shortness of breath, abdominal pain, nausea, vomiting. He says that he feels much better, and that he is getting used to insulin. Review of Systems Review of Systems: All systems reviewed & are unremarkable except as noted in HPI & below Constitutional: no fever, no chills and no fatigue Respiratory: no cough, no dyspnea and no pain on inspiration Cardiovascular: no chest pain, no dyspnea on exertion, no palpitations and no edema Gastrointestinal: no abdominal pain, no early satiety, no nausea and no vomiting Physical Exam Physical Exam: Pleasant elderly male, sitting in a chair, in no acute distress Constitutional: well developed and well nourished; no acute distress Eyes: PERRL, conjunctivae normal, anicteric sclerae EOM intact bilaterally ENMT: external ear and nose normal, oropharynx normal Neck: normal visual inspection Respiratory: normal respiratory effort, lungs clear to auscultation Auscultation: no crackles, no rales, no rhonchi and no wheezes Cardiovascular: RRR, no murmur, no edema Heart Sounds: no gallop Chest (Breasts): Chest: normal inspection of chest Gastrointestinal (Abdomen): normal bowel sounds, soft, nontender, no hepatosplenomegaly Inspection/Auscultation: abdomen normal to inspection; abdomen not distended Percussion/Palpation: abdomen nontender and no guarding Musculoskeletal: Head/Neck/Chest: normocephalic, head atraumatic and neck supple Extremities: extremities normal to inspection Skin: no rashes, warm and dry Neurologic: PERRL, EOMI, accommodation nl, no face palsy, no dysarthria moves all extremities Psychiatric: A+Ox3, euthymic affect Speech: normal rate/rhythm/volume of speech Lymphatic: no lymphedema Results & Data Vital Signs (Past 12 Hours) Vital Signs Temp Pulse Pulse Resp BP Pulse Ox 05/10/19 07:23 36.7 C 76 16 109/62 91 05/10/19 01:34 65 18 91 05/09/19 23:54 37.4 C 97 H 18 136/63 93 Laboratory Results 05/10/19 05/10/19 05/10/19 Range/Units 07:36 05:51 05:18 Sodium 138 (136-145) mmol/L Potassium 3.4 L (3.5-5.1) mmol/L Chloride 102 (98-107) mmol/L Carbon Dioxide 28 (21-32) mmol/L Anion Gap 8.0 (3-11) BUN 26 H D (7-18) mg/dl Creatinine 1.38 (0.6-1.4) mg/dl Est Cr Clr Drug Dosing 63.6 ml/min Est GFR ( Amer) 60.0 Est GFR (Non-Af Amer) 51.8 BUN/Creatinine Ratio 18.6 (10-20) Glucose 153 H (70-99) mg/dl POC Glucose 166 H 153 H (70-99) Calcium 8.8 (8.5-10.1) mg/dl 05/09/19 05/09/19 05/09/19 Range/Units 20:12 20:10 16:31 Sodium (136-145) mmol/L Potassium (3.5-5.1) mmol/L Chloride (98-107) mmol/L Carbon Dioxide (21-32) mmol/L Anion Gap (3-11) BUN (7-18) mg/dl Creatinine (0.6-1.4) mg/dl Est Cr Clr Drug Dosing ml/min Est GFR ( Amer) Est GFR (Non-Af Amer) BUN/Creatinine Ratio (10-20) Glucose (70-99) mg/dl POC Glucose 375 H* 318 H* 184 H (70-99) Calcium (8.5-10.1) mg/dl 05/09/19 Range/Units 11:39 Sodium (136-145) mmol/L Potassium (3.5-5.1) mmol/L Chloride (98-107) mmol/L Carbon Dioxide (21-32) mmol/L Anion Gap (3-11) BUN (7-18) mg/dl Creatinine (0.6-1.4) mg/dl Est Cr Clr Drug Dosing ml/min Est GFR ( Amer) Est GFR (Non-Af Amer) BUN/Creatinine Ratio (10-20) Glucose (70-99) mg/dl POC Glucose 240 H (70-99) Calcium (8.5-10.1) mg/dl Medications Administered Current Inpatient Medications Acetaminophen (Tylenol) 650 mg PO Q4H PRN PRN Reason: pain/fever Stop: 06/07/19 00:34 Allopurinol (Zyloprim) [address] [facility] Stop: 06/07/19 08:59 Last Admin: 05/10/19 08:37 Dose: 100 mg Documented by: Amphetamine/Dextroamphetamine (Adderall) 20 mg PO BID@0700,1400 [facility] Stop: 05/22/19 06:59 Last Admin: 05/10/19 08:35 Dose: 20 mg Documented by: Aspirin (Ecotrin Ectab) [address] [facility] Stop: 06/07/19 08:59 Last Admin: 05/10/19 08:38 Dose: 81 mg Documented by: Atorvastatin Calcium (Lipitor) [address] [facility] Stop: 06/07/19 08:59 Last Admin: 05/10/19 08:37 Dose: 40 mg Documented by: Bupropion HCl (Wellbutrin-Sr) [address] [facility] Stop: 06/07/19 08:59 Last Admin: 05/10/19 08:37 Dose: 200 mg Documented by: Citalopram Hydrobromide (Celexa) [address] [facility] Stop: 06/07/19 08:59 Last Admin: 05/10/19 08:38 Dose: 20 mg Documented by: Dextrose (Dextrose 50%) 25 - 50 ml IV UD PRN; Protocol PRN Reason: Hypoglycemia Protocol Stop: 06/07/19 00:44 Gadobutrol (Gadavist 65ml) 11.2 ml IV ONCE PRN PRN Reason: Interaction Checking Stop: 05/12/19 23:05 Last Admin: 05/08/19 23:06 Dose: 11.2 ml Documented by: Glucagon (Glucagen) 1 mg IM UD PRN; Protocol PRN Reason: Hypoglycemia Protocol Stop: 06/07/19 00:44 Glucose (Glucose 40%) 15 - 30 gm PO UD PRN; Protocol PRN Reason: Hypoglycemia Protocol Stop: 06/07/19 00:44 Glucose (Dex4 Glucose) 4 - 8 tabs PO UD PRN; Protocol PRN Reason: Hypoglycemia Protocol Stop: 06/07/19 00:44 Lisinopril/HCTZ (Prinzide 20/25mg) 1 tab PO QAM JACQUIE Stop: 06/07/19 08:59 Last Admin: 05/10/19 08:38 Dose: 1 tab Documented by: Insulin Aspart (Novolog Flexpen) 0 units SC ACHS JACQUIE Stop: 06/07/19 00:59 Last Admin: 05/10/19 08:36 Dose: 11 units Documented by: Insulin Glargine (Lantus Solostar Pen) 0 units SC BID JACQUIE; Protocol Stop: 06/08/19 08:59 Last Admin: 05/10/19 08:39 Dose: 20 units Documented by: Miscellaneous (Carbohydrates For Hypoglycemia) 15 - 30 gm PO UD PRN PRN Reason: Hypoglycemia Treatment Stop: 06/07/19 00:44 Miscellaneous Information (Consult Glycemic Management Pharmacy) 1 ea N/A UD PRN PRN Reason: Consult Stop: 06/07/19 05:16 Ondansetron HCl (Zofran) 4 mg IV Q6H PRN PRN Reason: Nausea Stop: 06/07/19 00:34 Polyethylene Glycol (Miralax Powder Packet) 17 gm PO DAILY PRN PRN Reason: Constipation Stop: 06/08/19 18:09 Potassium Chloride (Klor-Con M20) 40 meq PO NOW ONE Stop: 05/10/19 09:46 Senna/Docusate Sodium (Senokot S) [address] [facility] Stop: 06/08/19 18:14 Last Admin: 05/10/19 08:37 Dose: 1 tab Documented by: Tolterodine Tartrate (Detrol) [address] [facility] Stop: 06/07/19 20:59 Last Admin: 05/10/19 08:37 Dose: 1 mg Documented by: (1) Falls Encounter type: initial encounter Qualified Code(s): W19.XXXA - Unspecified fall, initial encounter
[2019-05-10] MEDS ORDERED: POTASSIUM CHLORIDE 20 MEQ TABCR PO ONE (09:45)
--- NOTE | 2019-05-10 11:26 | Discharge Summary ---
Date of Service May 10, 2019 Admission HPI Per Admitting Provider This is a 68-year-old male with past medical history significant for diabetes, hypertension, chronic kidney disease stage III, overactive bladder, prostate cancer, gout, chronic depression, who presents with ambulatory dysfunction. The patient states he was at a meeting and he was walking with difficulty balancing himself. He held on to stuff to balance himself and then slowly went down to the ground. He did not hit anything. It has happened before too. On and off it is happening since last 2-3 months, this is why he came to the ER. He is also having urinary incontinence for the last few months and he attributes it to his prostate cancer. He is supposed to get surgery on 05/20/2019 at [place] for his prostate cancer. Lately, he is also having some mild memory issues. He denies any headache. He gets dizzy sometimes. Denies any blurred visions. No earache, no runny nose, no sore throat, no cough. Sometimes he gets difficulty swallowing because of dry mouth, mostly for solids. Appetite is okay. No recent weight gain or weight loss. Sleeps okay with CPAP. No sweating. No recent weight gain or weight loss. No chest pain. Gets some shortness of breath when he exerts himself. No nausea, no vomiting, no abdominal pain, no diarrhea or constipation, no melena or hematochezia. No burning micturition, no hematuria. No swelling in the legs. He is currently resting comfortably and hemodynamically stable. Admission Exam Per Admitting Provider GENERAL: The patient is obese, not in acute distress. VITAL SIGNS: Temperature 36.5, pulse 71, respiratory rate 18, blood pressure 141/64, oxygen 94% on room air. HEENT: No pallor, no icterus. Pupils equal, round, reactive to light. NECK: No JVD, no neck masses. CARDIOVASCULAR: S1, S2 heard, regular rate and rhythm, no murmur, no gallop. RESPIRATORY SYSTEM: Normal AP diameter. No accessory muscle use. No wheezing, no crackles. ABDOMEN: Soft, bowel sounds present, nontender. No distention. CENTRAL NERVOUS SYSTEM: Cranial nerves II-XII grossly intact. Power 5/5 in all extremities. Coordination of movements normal. [place]-junw test normal. No pronator drift. Sensation is intact. EXTREMITIES: No edema, no erythema. Principal Diagnosis Ambulatory dysfunction, status post multiple falls, uncontrolled diabetes mellitus type II, concern for normal pressure hydrocephalus Discharge Exam Constitutional well developed and well nourished; no acute distress Eyes PERRL, conjunctivae normal, anicteric sclerae EOM intact bilaterally ENMT external ear and nose normal, oropharynx normal Neck normal visual inspection Respiratory normal respiratory effort, lungs clear to auscultation Auscultation: no crackles, no rales, no rhonchi and no wheezes Cardiovascular RRR, no murmur, no edema Heart Sounds: no gallop Chest (Breasts) Chest: normal inspection of chest Gastrointestinal (Abdomen) normal bowel sounds, soft, nontender, no hepatosplenomegaly Inspection/Auscultation: abdomen normal to inspection; abdomen not distended Percussion/Palpation: abdomen nontender and no guarding Musculoskeletal Head/Neck/Chest: normocephalic, head atraumatic and neck supple Extremities: extremities normal to inspection Skin no rashes, warm and dry Neurologic PERRL, EOMI, accommodation nl, no face palsy, no dysarthria moves all extremities Psychiatric A+Ox3, euthymic affect Speech: normal rate/rhythm/volume of speech Lymphatic no lymphedema Discharge Data Allergies Allergy/AdvReac Type Severity Reaction Status Date / Time No Known Allergies Allergy Verified 05/07/19 21:35 Consultations 05/07/19 23:27 ED Decision to Admit Stat 05/08/19 00:35 Consult Case Management - Discharge Planning Routine 05/08/19 08:00 Consult Neurology Routine Ordered Studies 05/07/19 19:46 CT head/brain wo con Stat 05/08/19 00:35 MR brain wo con Routine 05/08/19 15:59 MR cervical spine wo/w con Routine 05/08/19 16:01 MR thoracic spine wo/w con Routine Hospital Course (1) Falls: (2) Weakness: (3) Ambulatory dysfunction: This is a 68-year-old male who presents with fall and ambulatory dysfunction. Fall and ambulatory dysfunction. CT head showing possible normal pressure hydrocephalus, it was noted on the previous CAT scan too - patient is also having urinary incontinence for few months. He attributes it to his prostate cancer and he also has some memory issues and he is having ambulatory dysfunction for the last 2-3 months. All these symptoms could be from normal pressure hydrocephalus - MRI of brain, cervical and thoracic spine obtained (per neurology recommendation) - neurology consulted -at this time do not believe this is normal pressure hydrocephalus, however they are also going to follow-up with the patient as outpatient, there is concern for possible supranuclear palsy, and patient may need referral to movement specialist as outpatient, EMG of LE as outpatient will also be arranged to further evaluate patient's neuropathy -plan to follow-up with neurology in 4 to 6 weeks after discharge - PT/OT -recommend inpatient rehab (plan to d/c to [facility]) (4) Diabetes mellitus type 2, uncontrolled: Hemoglobin A1c 11.5% On admission in the ER glucose level at 400s, received IV insulin At home takes metformin, held during hospitalization Pharm glycemic mngmt and diabetes education consulted -please see their note for further details, as outpatient, patient will likely use basal insulin, 35 units qhs and metformin (titrate to 1,000 mg bid). While in the hospital, patient's been getting insulin glargine, 20 units in the morning and 30 units at night Discussed with the patient and his Katty (on the phone), that pt will need insulin when discharged, (pt will need to learn how to use insulin), patient is agreeable Will continue to monitor blood glucose levels, and will adjust insulin as needed (5) Hyperlipidemia: Continue home statin (6) CKD stage 3 secondary to diabetes: Baseline creatinine 1.1-1.4, admission creatinine 1.49 -Now improved, back to baseline -We will continue to monitor renal function -We will try to avoid nephrotoxic agents, NSAIDs, contrast, etc. History of prostate cancer, supposed to get surgery in [place] on 05/20/2019. Continue his VESIcare for urinary incontinence. (7) Gout: Continue home allopurinol (8) MCKENNA (obstructive sleep apnea): On CPAP at bedtime (9) Depression: Continue home bupropion and citalopram -no acute issues -Follow-up with psychiatry (10) DVT prophylaxis: SCDs for now (11) Discharge planning issues: Plan to discharge to inpatient rehab ([facility]) Total Time Total Time Spent Total Time Spent (In Minutes): 40 Total Time Includes: Examination of the Patient, Discharge Planning, Medication Reconciliation and Communication With Other Providers Discharge Plan Discharge Items Patient Disposition: Transfer Inpatient Rehab Fac Reason For Visit: FALL Discharge Diagnosis: Uncontrolled diabetes mellitus type 2, ambulatory dysfunction (s/p falls) Activity: Per Instructions section Activity Comment: activity as tolerated and per physical therapists at [facility] Non-emergency contact: Primary Care Provider Call non-emergency contact if: you have any medication questions and your symptoms worsen Follow-up/Referrals: Mitchel Black MD [Primary Care Provider] - Diet: Carb Consistent or DM2 and Heart Healthy Addtl Attending Provider Instructions: Patient presented with ambulatory dysfunction, status post falls was found to have uncontrolled diabetes mellitus type 2. He was started on insulin while inpatient. Discussed in detail with the patient and his that he will need insulin when he goes home. He understands and is agreeable. Patient also has a history of prostate cancer, he has a scheduled surgery in [place] in May 2019. Neurology was involved in the evaluation of this patient due to possible normal pressure hydrocephalus/other neurological condition, they plan to follow- up with the patient within 4 to 6 weeks. At this point I do not have date or time for this appointment however patient is supposed to be contacted from neurology office. Pending Studies at Discharge: No Stand-Alone Forms: My [facility] Skilled Items Patient informed of condition?: Yes DNR: No Discharge Level of Care: Acute rehab Communicable Disease: No Discharge Prognosis: Stable Lines: None Urinary Catheter: No Medications and DC Order Prescriptions: New acetaminophen [Mapap (acetaminophen)] 325 mg Tablet 650 mg PO Q4H PRN (Reason: pain) 5 Days Qty: 20 RF: 0 polyethylene glycol 3350 [Miralax] 17 gram Powder In Packet 17 g PO DAILY PRN (Reason: constipation) 5 Days Qty: 10 RF: 0 sennosides-docusate sodium [Senokot-S] 8.6-50 mg Tablet 1 tab PO QAM 5 Days Qty: 5 RF: 0 Lantus Solostar U-100 Insulin 100 unit/mL (3 mL) Insulin Pen 35 units SC .qhs 5 Days Qty: 3 RF: 0 Continued atorvastatin 40 mg tablet 40 mg PO QAM RF: 0 allopurinol 100 mg tablet 100 mg PO QAM RF: 0 sildenafil 100 mg tablet 100 mg PO DIRECTED RF: 0 citalopram 20 mg tablet 20 mg PO QAM RF: 0 dextroamphetamine-amphetamine 20 mg tablet 20 mg PO BID RF: 0 lisinopril-hydrochlorothiazide 20-25 mg tablet 1 tab PO QAM RF: 0 bupropion HCl 200 mg tablet sustained-release 12 hr 200 mg PO BID RF: 0 solifenacin [Vesicare] 10 mg tablet 10 mg PO QAM RF: 0 metformin 500 mg tablet extended release 24 hr 500 mg PO BID RF: 0 aspirin [Aspirin Low Dose] 81 mg Tablet,Delayed Release (Dr/Ec) 81 mg PO DAILY RF: 0 Discharge Orders: Discharge Order (Routine); Ordered 05/10/19 Ordered By: Marc Vigil Admission Data Admit Date/Time: 05/07/19 23:49 Attending Provider: Marc Vigil Admit Provider: Parish Dominguez Primary Care Provider: Mitchel Black Other Providers: Parish Dominguez ; Alhaji Yadav ; [facility]
== END 2019-05-10 13:29 | DRG 92 ==
LOC: ED 19:27 → 2N 23:49